=== PATIENT | female | born 1945 | race Caucasian/White ===

== ENCOUNTER 2020-01-02 12:57 | Outpatient (CLI) | payer MEDICARE, OTHER, SELFPAY ==
--- NOTE | 2020-01-02 13:08 | MM_ITS ---
WS: [id number] BILATERAL DIGITAL SCREENING MAMMOGRAPHY WITH CAD CLINICAL INFORMATION: SCREENING HISTORY: Screening mammogram. No current complaints. COMPARISON: TECHNIQUE: Bilateral CC and MLO views. FINDINGS: The breasts are composed of heterogeneous fibroglandular density tissue, which can limit the detectio n of small underlying mass lesions. No suspicious mass, asymmetry, calcifications, or architectural d istortion. No evidence of malignancy. A few stable intramammary lymph nodes. MM/[id number] IMPRESSION: BI-RADS: 2-Benign FOLLOW UP: 1 Year Follow-up Recommend return to annual screening mammography.
== END 2020-01-02 12:58 | disposition home or self-care (01) ==
LOC: RADSHAW 13:05
PROVIDERS: PCP Electrodiagnostic Medicine; Visit Provider Electrodiagnostic Medicine
DX: Z12.31 Encounter for screening mammogram for malignant neoplasm of breast (principal)
CPT/HCPCS: 77067

== ENCOUNTER 2020-03-17 09:51 | Outpatient (CLI) | payer MEDICARE, OTHER, SELFPAY ==
--- NOTE | 2020-03-17 10:00 | XR_ITS ---
WS: [id number] XR chest 2V* [id number] REASON FOR EXAM: PLEURISY FINDINGS: The heart and mediastinum are within normal limits for age. No active pulmonary parenchymal pleural disease is noted. Changes of degenerative spondylosis in the mid and lower thoracic spine, mild to moderate. XR/XR chest 2V* [id number] IMPRESSION: No acute chest abnormality.
== END 2020-03-17 09:52 | disposition home or self-care (01) ==
LOC: RAD 09:56
PROVIDERS: PCP Electrodiagnostic Medicine; Visit Provider Electrodiagnostic Medicine
DX: R09.1 Pleurisy (principal); R07.9 Chest pain, unspecified
CPT/HCPCS: 71046

== ENCOUNTER 2020-03-26 13:41 | Outpatient (CLI) | payer MEDICARE, OTHER, SELFPAY ==
--- NOTE | 2020-03-26 13:48 | CT_ITS ---
WS: [id number] CT CHEST WITH INTRAVENOUS CONTRAST HISTORY: LUNG NODULE, PLEURISY, CHEST PAIN TECHNIQUE: Contiguous 5 mm axial imaging performed on the thorax. Coronal and sagittal reformats are submitted. All CT scans at [facility] use at least one of these dose optimization techniq ues: automated exposure control; mA and/or kV adjustment per patient size (includes targeted exams wh ere dose is matched to clinical indication); or iterative reconstruction. CONTRAST: Omnipaque 300; 95 mL IV. DLP: 932.89 mGycm COMPARISON: 09/19/2018 Lungs and central airway: Poor inspiration resulting in mild crowding of the lung markings. 7 mm nodu le along the RIGHT fissures. Difficult to see today due to the poor inspiration. No increase in size or change since 04/05/2018. There is no pneumonia. Pleura: Normal. No pleural effusion. Heart and pericardium: Normal size heart with no pericardial effusion. Mediastinum and michelle: No mediastinum or hilar adenopathy. Vessels: Normal size aortic and pulmonary artery. No coronary artery calcifications. Chest wall and lower neck: No soft tissue masses. Upper abdomen: Mild hepatic steatosis. Prior cholecystectomy. Osseous structures: Degenerative thoracic spondylosis is most significant in the mid to lower thoraci c vertebral bodies. CT/CT chest w con* [id number] IMPRESSION: 1. Long-term stability of a RIGHT perifissural nodule. No additional follow-up necessary. 2. No pneumonia or mass. 3. Prior cholecystectomy.
[2020-03-26 14:29] LABS: Blood Urea Nitrogen 11 mg/dL (8-23)
[2020-03-26] MEDS: iohexol 300 mg/mL 100 mL Btl IV (14:36)
== END 2020-03-26 13:42 | disposition home or self-care (01) ==
LOC: RADWPI 13:48
PROVIDERS: PCP Electrodiagnostic Medicine; Visit Provider Electrodiagnostic Medicine
DX: R91.8 Other nonspecific abnormal finding of lung field (principal); R09.1 Pleurisy; R07.9 Chest pain, unspecified; Z90.49 Acquired absence of other specified parts of digestive tract
CPT/HCPCS: 71260; 82565; 84520; Q9967

== ENCOUNTER 2021-02-27 10:11 | Outpatient (CLI) | payer MEDICARE, OTHER, SELFPAY ==
--- NOTE | 2021-02-27 10:13 | MM_ITS ---
WS: [id number] Bilateral screening digital mammogram, 02/27/2021 Clinical Data: SCREENING Comparison: 01/02/2020, 02/07/2018, 02/26/2017, 12/10/2015, 10/14/2014. Findings: The breast parenchymal pattern shows heterogeneous density. No spiculated masses or clustered calcifi cations are seen. There are no secondary signs of carcinoma. MM/[id number] Impression: 1. Negative bilateral mammogram unchanged. 2. Recommend annual screening mammograms. BIRADS: 1-Negative FOLLOW UP: 1 Year Follow-up The CAD jukebox checker was used.
== END 2021-02-27 10:12 | disposition home or self-care (01) ==
LOC: RADSHAW 10:12
PROVIDERS: PCP Electrodiagnostic Medicine; Visit Provider Electrodiagnostic Medicine
DX: Z12.31 Encounter for screening mammogram for malignant neoplasm of breast (principal)
CPT/HCPCS: 77067

== ENCOUNTER 2021-03-30 14:35 | Outpatient (CLI) | payer MEDICARE, OTHER, SELFPAY ==
--- NOTE | 2021-03-30 14:43 | XR_ITS ---
WS: [id number] SCREENING DEXA SCAN [facility] CLINICAL INFORMATION: POST MENOPAUSAL STATUS COMPARISON: None. FINDINGS: The L1-L4 bone mineral density measures 1.294 g/cm2. This corresponds to a T score score of 0.9 and Z score of 1.7. Right femoral neck bone mineral density measures 0.941 g/cm2. This corresponds to a T score -0.5of an d Z score of 0.4. XR/XR DEXA axial skeleton* [id number] IMPRESSION: Normal bone mineralization. Patient's FRAX calculated 10 year probability for major osteoporotic fracture i s 10.0 % and osteoporotic hip fracture is 1.9%.
== END 2021-03-30 14:36 | disposition home or self-care (01) ==
PROVIDERS: PCP Electrodiagnostic Medicine; Visit Provider Electrodiagnostic Medicine
DX: Z78.0 Asymptomatic menopausal state (principal)
CPT/HCPCS: 77080

== ENCOUNTER 2021-04-07 10:55 | Emergency (ER) | payer MEDICARE, OTHER, SELFPAY ==
[2021-04-07 11:12] VITALS: BP 170/104; PULSE 63; RESP 18; TEMP 37.1; O2SAT 97; BMI 42.4
--- NOTE | 2021-04-07 11:33 | ED_ITS ---
HPI - Female Genitourinary General: Chief complaint: Urogenital-Female Stated complaint: BACK PAIN/R SIDE FLANK PAIN Time Seen by Provider: 04/07/21 11:26 History of Present Illness: HPI Narrative: 75-year-old female complains of right-sided flank pain that radiates down into her groin. Is worse when she tries to sit up. She denies any dysuria urgency or frequency no nausea or vomiting. Pain has been quite severe she is not noticed any other exacerbating or relieving factors other than waiting flexion at her hip and which worsens it and resting which improves it. She denies fever sweats chills no hematochezia melena hematemesis cough cramps no hematuria no history of renal lithiasis. Does not have any vaginal bleeding. She previously has had a hysterectomy and a cholecystectomy. MD elicited complaint: other (Right lower quadrant pain) Onset (ago): hour(s) Location of symptoms: RLQ Severity: moderate Quality of pain: cramping and sharp Consistency: intermittent Vaginal discharge: none Vaginal bleeding: none Exacerbating factors: movement and palpation Relieving factors: other (Rest) Associated symptoms: Reports abdominal pain and nausea Treatment prior to arrival: none Review of Systems Const: Denies: fever(s), chills, body aches, change in appetite, fatigue or malaise ENMT: Denies: throat pain, ear or mastoid pain, nasal discharge or nasal congestion Card: Denies: chest pain, edema, dyspnea on exertion or orthopnea Resp: Denies: dyspnea, productive cough or non-productive cough GI: Reports: abdominal pain and nausea : Denies: flank pain, difficulty voiding, dysuria, urinary frequency or urinary urgency Skin/Breast: Denies: rash or pruritus PFSH ED PFSH: Social History Smoking and tobacco status: never smoked Physical Exam Const: COMMON NORMALS: no acute distress ORIENTATION/CONSCIOUSNESS: Yes awake, Yes oriented to person, Yes oriented to place and Yes oriented to time HENMT: COMMON NORMALS: normocephalic, atraumatic and hearing grossly normal bilaterally HEAD & SCALP: normocephalic and atraumatic Neck/C-Spine: COMMON NORMALS: no JVD Resp: COMMON NORMALS: normal respiratory effort, No retractions, No use of accessory muscles and clear to auscultation bilaterally AUSCULTATION: clear to auscultation bilaterally Cardio: COMMON NORMALS: no JVD, regular rate, regular rhythm and No murmurs present (Cardio) RATE: regular rate RHYTHM: regular rhythm GI: PALPATION: Yes Tenderness to palpation present (GI) Details: RLQ and No Guarding due to palpation present (GI) Extremity: COMMON NORMALS: normal to inspection, capillary refill normal, no clubbing, cyanosis or edema, no calf tenderness and no pedal edema Neuro: SENSORIUM/ORIENTATION: Yes oriented to person, Yes oriented to place and Yes oriented to time Skin: COMMON NORMALS: no rashes or lesions noted GENERAL SKIN EXAM: no rashes or lesions noted Course Vital Signs: Vital signs: Vital Signs Temperature 98.7 F 04/07/21 11:12 Pulse Rate 70 04/07/21 14:58 Respiratory Rate 16 04/07/21 14:58 Blood Pressure 154/84 04/07/21 14:58 Pulse Oximetry 98 04/07/21 14:58 MDM - Female MDM Narrative: Medical decision making narrative: Pain reproducible with flexion across the abdomen by palpation. No peritoneal signs labs and imaging unremarkable recheck patient diclofenac can use ice or heat to that area of the muscle wall as needed return if has further problems. Lab Data: Labs: Lab Results 04/07/21 04/07/21 04/07/21 11:57 11:57 11:57 WBC 7.1 10^3/uL 10^3/ uL (4.0-10.0) RBC 5.72 10^6/uL H 10 ^6/uL (4.1-5.3) Hgb 15.6 g/dL H g/dL (11.5-15.3) Hct 49.5 % H % (37.0-47.0) MCV 86.5 fl fl (81-99) MCH 27.3 pg L pg (28.0-34.0) MCHC 31.5 g/dL g/dL (30.0-36.0) RDW 13.8 % % (12.1-15.1) Plt Count 291 10^3/cmm 10^3 /cmm (130-400) MPV 9.7 fL fL (7.4-10.4) Neut % (Auto) 52.7 % % Lymph % (Auto) 38.9 % % [place] % (Auto) 6.3 % % Eos % (Auto) 1.4 % % Baso % (Auto) 0.6 % % Neut # (Auto) 3.74 10^3/uL 10^3 /uL (1.8-7.7) Lymph # (Auto) 2.8 10^3/uL 10^3/ uL (0.8-4.8) [place] # (Auto) 0.5 10^3/uL 10^3/ uL (0.2-0.9) Eos # (Auto) 0.1 10^3/uL 10^3/ uL (0.0-0.8) Baso # (Auto) 0.0 10^3/uL 10^3/ uL (0.0-0.1) Nucleated RBC % (a uto) 0 % % Nucleated RBCs # 0.0 /100WBC /100W BC Sodium 142 mmol/L mmol/L (136-145) Potassium 4.0 mmol/L mmol/L (3.5-5.1) Chloride 105 mmol/L mmol/L (98-107) Carbon Dioxide 24 mmol/L mmol/L (22-29) Anion Gap 17.0 (5-19) BUN 12 mg/dL mg/dL (8-23) Creatinine 0.6 mg/dL mg/dL (0.5-0.9) GFR Calculation Not Reportable Glucose 106 mg/dL mg/dL (65-115) Calculated Osmolal ity 294 mOsm/kg mOsm/ kg (285-295) Calcium 9.1 mg/dL mg/dL (8.5-10.5) Total Bilirubin 0.4 mg/dL mg/dL (0.15-1.2) AST 22 U/L U/L (0-32) ALT 15 U/L U/L (0-33) Alkaline Phosphata se 88 IU/L IU/L (35-105) Total Protein 8.1 g/dL g/dL (6.6-8.7) Albumin 4.4 g/dL g/dL (3.5-5.2) Globulin 3.7 g/dL g/dL (1.3-4.6) Lipase 22 U/L U/L (13-60) Urine Color Yellow (Yellow) Urine Appearance Hazy A (CLEAR) Urine pH 5 (5-7) Ur Specific Gravit y 1.020 (1.005-1.030) Urine Protein Neg (Negative) Urine Glucose (UA) Norm (Normal) Urine Ketones Negative (Negative) Urine Blood Neg (Negative) Urine Nitrate Negative (Negative) Urine Bilirubin Neg (Negative) Urine Urobilinogen Norm mg/dL mg/dL (Negative) Ur Leukocyte Christina ase 1+ H (Negative) Urine RBC 0-4 /hpf H /hpf (0-2) Urine WBC 5-10 /hpf H /hpf (0-5) Ur Squamous Epith Cells 5-10 /hpf H /hpf (0-5) Ur Transition Epit h Cell 5-10 /hpf /hpf Amorphous Sediment Not Reportable Urine Bacteria 1+ /hpf H /hpf (NONE) Urine Mucus 2+ /hpf /hpf Discharge Plan Discharge Patient Disposition: Home Clinical Impression: Abdominal wall pain in right lower quadrant Condition: Stable Prescriptions: New diclofenac sodium 75 mg tablet,delayed release (DR/EC) 75 mg PO Q12H PRN (Reason: pain) Qty: 20 RF: 0 No Action Tylenol Ex Str Rapid Release 500 mg Tablet 1,000 mg PO Q4H PRN (Reason: Pain) RF: 0 Cholestyramine Light 4 gram powder in packet 1 ea PO BID PRN (Reason: GUT) RF: 0 Discharge Orders: Discharge ED (Routine); Ordered 04/07/21 Ordered By: Manuel Vilchis Referrals: Alexys Swanson DO [Primary Care Provider] - Discharge Diet: Usual diet Discharge Activity: Limit activity as instructed Patient Instructions: Opioid Safety Activity Restrictions/Additional Instructions: Limit lifting to no greater than 20 pounds. Coding Level of Care Code ED Concrete Batcher for Chg Fwd Exam Comprehensive
--- NOTE | 2021-04-07 11:33 | CT_ITS ---
WS: [id number] CT abdomen pelvis w con* [id number] REASON FOR EXAM: abd pain IV CONTRAST ADMINISTERED: 95 mL of Omnipaque 300 TOTAL EXAM DLP: 1689.[address] scans at [facility] use at least one of these dose optimization techniques: automat ed exposure control; mA and/or kV adjustment per patient size (includes targeted exams where dose is matched to clinical indication); or iterative reconstruction. FINDINGS: ABDOMEN: Liver, spleen, and pancreas are unremarkable. Gallbladder has been surgically removed The adrenals are unremarkable. No calculus, mass, or hydronephrosis of the right kidney. 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 No calculus or mass. No abdominal mass or adenopathy. No focal fluid collection or free fluid. No bowel abnormality. Normal appendix. PELVIS: Diverticular disease of the rectosigmoid colon without evidence of diverticulitis. No free fluid or focal fluid collection No mass or adenopathy. No bladder abnormality. LUMBAR SPINE, BONY PELVIS: Degenerative spondylosis in the lower thoracic spine and upper lumbar spine with narrowing of the dis c spaces and anterior osteophytic spurring. No focal vertebral body abnormality. Bony pelvis is intact without focal abnormality. CT/CT abdomen pelvis w con* [id number] IMPRESSION: No acute abdominal or pelvic abnormality.
[2021-04-07 12:06] LABS: Basophils % 0.6 %; Eosinophils # 0.1 10^3/uL (0.0-0.8); Eosinophils % 1.4 %; Hematocrit 49.5 % (37.0-47.0); Hemoglobin 15.6 g/dL (11.5-15.3); Lymphocytes # 2.8 10^3/uL (0.8-4.8); Lymphocytes % 38.9 %; Mean Corpuscular HGB Conc 31.5 g/dL (30.0-36.0); Mean Corpuscular Hemoglobin 27.3 pg (28.0-34.0); Mean Corpuscular Volume 86.5 fl (81-99); Mean Platelet Volume 9.7 fL (7.4-10.4); Monocytes # 0.5 10^3/uL (0.2-0.9); Monocytes % 6.3 %; Neutrophils # 3.74 10^3/uL (1.8-7.7); Neutrophils % 52.7 %; Nucleated Red Blood Cells % 0 %; Platelet Count 291 10^3/cmm (130-400); Red Blood Count 5.72 10^6/uL (4.1-5.3); Red Cell Distribution Width 13.8 % (12.1-15.1); White Blood Count 7.1 10^3/uL (4.0-10.0)
[2021-04-07 12:26] LABS: Bilirubin Urine Neg (Negative); Blood Urine Neg (Negative); Glucose Urine UA Norm (Normal); Ketones Urine Negative (Negative); Nitrate Urine Negative (Negative); Protein Urine Neg (Negative); Urine Appearance Hazy (CLEAR); Urine Color Yellow (Yellow); Urobilinogen Urine Norm (Negative); pH Urine 5 (5-7)
[2021-04-07 12:27] LABS: Add Urine Culture? Yes; Add Urine Microscopic? YES; Bacteria Urine 1+ /hpf; Leukocyte Esterase Urine 1+ (Negative); Mucus Urine 2+ /hpf; RBC Urine 0-4 /hpf (0-2)
[2021-04-07 12:31] LABS: Alanine Aminotransferase 15 U/L (0-33); Albumin Level 4.4 g/dL (3.5-5.2); Alkaline Phosphatase 88 IU/L (35-105); Aspartate Amino Transferase 22 U/L (0-32); Blood Urea Nitrogen 12 mg/dL (8-23); Calcium 9.1 mg/dL (8.5-10.5); Carbon Dioxide 24 mmol/L (22-29); Chloride 105 mmol/L (98-107); Globulin 3.7 g/dL (1.3-4.6); Glucose 106 mg/dL (65-115); Lipase 22 U/L (13-60); Osmolality Calculated 294 mOsm/kg (285-295); Sodium 142 mmol/L (136-145); Total Bilirubin 0.4 mg/dL (0.15-1.2); Total Protein 8.1 g/dL (6.6-8.7)
[2021-04-07 12:38] VITALS: BP 174/96; PULSE 63; RESP 16; O2SAT 98
[2021-04-07] MEDS: iohexol 300 mg/mL 100 mL Btl IV (13:20)
[2021-04-07 13:56] VITALS: BP 150/85; PULSE 68; RESP 18; O2SAT 97
[2021-04-07 14:58] VITALS: BP 154/84; PULSE 70; RESP 16; O2SAT 98
== END 2021-04-07 14:59 | disposition home or self-care (01) ==
PROVIDERS: Emergency Medicine; Emergency Provider Family Medicine; PCP Electrodiagnostic Medicine
DX: R10.31 Right lower quadrant pain (principal)
CPT/HCPCS: 36415; 74177; 80053; 81000; 81001; 83690; 85025; 87040; 87086; 99283; Q9967

== ENCOUNTER 2021-04-22 15:02 | Emergency (ER) | payer MEDICARE, OTHER, SELFPAY ==
[2021-04-22 15:12] VITALS: BP 155/81; PULSE 67; RESP 16; TEMP 36.6; O2SAT 97
--- NOTE | 2021-04-22 15:29 | W.ED.ABDPA2 ---
HPI - Abdominal Pain General: Chief Complaint: Abdominal Pain Stated Complaint: ABD PAIN Time Seen by Provider: 04/22/21 15:11 Source: patient Mode of arrival: ambulatory Limitations: no limitations History of Present Illness: HPI narrative: 75-year-old female returning to the ER with complaints of continued left lower flank/hip pain described as sharp, stabbing, intermittent, worse with movement, better with staying still. She was seen here about 1 week ago and had a normal CT at that time, treated for musculoskeletal sprain. She went to her PCP several days later, was started on antibiotics for suspected diverticulitis, but is still having the pains. No dysuria. No history of kidney stones. No fever or diarrhea. Occasionally she is nauseous because of the pain. MD elicited complaint: flank pain Onset (ago): week(s) Pain Consistency: intermittent and now resolved Location: R flank and Pelvis Severity: severe Quality: stabbing and sharp Exacerbating factors: movement Relieving factors: rest Associated Symptoms: Reports nausea; Denies chills, fever(s) and vomiting Treatments prior to arrival: NSAIDs Review of Systems General: Reports: 10 or more systems reviewed and unremarkable except in HPI and below Const: Denies: fever(s), chills, body aches, change in appetite or change in weight Card: Denies: chest pain, palpitations or irregular heart rhythm Resp: Denies: dyspnea or productive cough GI: Reports: nausea; Denies: abdominal pain or vomiting : Reports: flank pain; Denies: difficulty voiding, urinary urgency or urinary hesitancy Musc: Denies: muscle cramps or muscle weakness Skin/Breast: Denies: rash, pruritus or erythema Neuro: Denies: headache(s), numbness in extremities or weakness in extremities Nicolás/Lymph: Denies: easy bruising or easy bleeding PFSH ED PFSH: Family History Sister Hyperlipidemia Stroke Brother Stroke Colon cancer x2 onset in their 60's Denies family history of Ovarian cancer Diabetes Clotting disorder Heart disease Breast cancer Anesthesia complication Bleeding disorder Hypertension Uterine cancer Thyroid condition Social History Smoking and tobacco status: never smoked Physical Exam Const: COMMON NORMALS: no acute distress and patient oriented x3 GENERAL APPEARANCE: cooperative and comfortable NUTRITIONAL APPEARANCE: obese morbidly obese HENMT: COMMON NORMALS: normocephalic and atraumatic HEAD & SCALP: normocephalic and atraumatic FACE & SINUS: normal facial exam, sinuses nontender and face symmetric Eye: COMMON NORMALS: Equal, round and reactive pupils present, EOMs intact bilaterally, conjunctivae normal and no scleral icterus CONJUNCTIVA: Yes conjunctivae normal PUPIL: Yes Equal, round and reactive pupils present Resp: COMMON NORMALS: normal respiratory effort, No retractions and No use of accessory muscles EFFORT & INSPECTION: Yes able to speak in complete sentences GI: COMMON NORMALS: Normal to inspection, nondistended, normoactive bowel sounds present, Soft to palpation and non-tender INSPECTION: Yes central obesity PALPATION: Yes Soft to palpation : COMMON NORMALS: Yes no CVA tenderness BLADDER/KIDNEY EXAM: Yes no CVA tenderness Back/Pelvis: COMMON NORMALS: no CVA tenderness THORACIC SPINE/UPPER BACK: Yes paraspinal muscle tenderness, Yes paraspinal muscle spasm and No other soft tissue findings Extremity: COMMON NORMALS: full ROM, capillary refill normal and no clubbing, cyanosis or edema Neuro: COMMON NORMALS: patient oriented x3 and moves all extremities Skin: COMMON NORMALS: no rashes or lesions noted, no wounds and no jaundice GENERAL SKIN EXAM: no rashes or lesions noted Course Vital Signs: Vital signs: Vital Signs Temperature 97.8 F 04/22/21 15:12 Pulse Rate 78 04/22/21 20:29 Respiratory Rate 16 04/22/21 20:29 Blood Pressure 120/60 04/22/21 20:29 Pulse Oximetry 98 04/22/21 20:29 MDM - Abdominal Pain MDM Narrative: Medical decision making narrative: 75-year-old female with persistent left lower flank /side pain for 2 weeks. Repeat lab work is unremarkable. No signs of acute UTI Noncontrast CT does not show any ureteral stones. There are some calcified densities in the adipose tissue around the area that she has pain; unsure if these are in any way related to her pain. She does have severe degenerative disc disease of the lower thoracic and upper lumbar vertebra: Possibly pain could be due to a radiculopathy-we will give a dose of Decadron 8 mg IV x1, continue NSAIDs, follow-up closely with PCP in the next 3 to 5 days for recheck. Differential Diagnosis: Differential diagnosis abdominal pain: Likely abdominal pain, calculus of kidney, endometriosis and small bowel obstruction Medical Records: Attestation: I reviewed the patient's medical records. Lab Data: Attestation: I reviewed the patient's lab results. Labs: Lab Results 04/22/21 04/22/21 04/22/21 14:45 14:45 16:13 WBC 7.4 10^3/uL 10^3/ uL (4.0-10.0) RBC 5.52 10^6/uL H 10 ^6/uL (4.1-5.3) Hgb 15.0 g/dL g/dL (11.5-15.3) Hct 47.5 % H % (37.0-47.0) MCV 86.1 fl fl (81-99) MCH 27.2 pg L pg (28.0-34.0) MCHC 31.6 g/dL g/dL (30.0-36.0) RDW 14.2 % % (12.1-15.1) Plt Count 275 10^3/cmm 10^3 /cmm (130-400) MPV 10.5 fL H fL (7.4-10.4) Neut % (Auto) 62.3 % % Lymph % (Auto) 29.0 % % [place] % (Auto) 6.4 % % Eos % (Auto) 1.2 % % Baso % (Auto) 0.8 % % Neut # (Auto) 4.58 10^3/uL 10^3 /uL (1.8-7.7) Lymph # (Auto) 2.1 10^3/uL 10^3/ uL (0.8-4.8) [place] # (Auto) 0.5 10^3/uL 10^3/ uL (0.2-0.9) Eos # (Auto) 0.1 10^3/uL 10^3/ uL (0.0-0.8) Baso # (Auto) 0.1 10^3/uL 10^3/ uL (0.0-0.1) Nucleated RBC % (a uto) 0 % % Nucleated RBCs # 0.0 /100WBC /100W BC Sodium 138 mmol/L mmol/L (136-145) Potassium 4.8 mmol/L mmol/L (3.5-5.1) Chloride 102 mmol/L mmol/L (98-107) Carbon Dioxide 24 mmol/L mmol/L (22-29) Anion Gap 16.8 (5-19) BUN 20 mg/dL mg/dL (8-23) Creatinine 0.8 mg/dL mg/dL (0.5-0.9) GFR Calculation Not Reportable Glucose 92 mg/dL mg/dL (65-115) Calculated Osmolal ity 288 mOsm/kg mOsm/ kg (285-295) Calcium 9.1 mg/dL mg/dL (8.5-10.5) Total Bilirubin 0.3 mg/dL mg/dL (0.15-1.2) AST 32 U/L U/L (0-32) ALT 30 U/L U/L (0-33) Alkaline Phosphata se 78 IU/L IU/L (35-105) C-Reactive Protein 2.4 mg/L mg/L (0.0-4.9) Total Protein 8.0 g/dL g/dL (6.6-8.7) Albumin 4.4 g/dL g/dL (3.5-5.2) Globulin 3.6 g/dL g/dL (1.3-4.6) Urine Color Yellow (Yellow) Urine Appearance Clear (CLEAR) Urine pH 5 (5-7) Ur Specific Gravit y 1.010 (1.005-1.030) Urine Protein Neg (Negative) Urine Glucose (UA) Norm (Normal) Urine Ketones Negative (Negative) Urine Blood Neg (Negative) Urine Nitrate Negative (Negative) Urine Bilirubin Neg (Negative) Urine Urobilinogen Norm mg/dL mg/dL (Negative) Ur Leukocyte Christina ase Trace H (Negative) Urine RBC None /hpf /hpf (0-2) Urine WBC 5-10 /hpf H /hpf (0-5) Ur Squamous Epith Cells 0-4 /hpf H /hpf (0-5) Amorphous Sediment Not Reportable Urine Bacteria Trace /hpf /hpf (NONE) Discharge Plan Discharge Patient Disposition: Home Clinical Impression: Radicular pain, Dorsalgia of thoracolumbar region Condition: Stable Prescriptions: New meloxicam 15 mg tablet 15 mg PO DAILY PRN (Reason: pain) Qty: 10 RF: 0 No Action metronidazole [Flagyl] 500 mg tablet 500 mg PO BID 14 Days Qty: 28 RF: 0 Tylenol Ex Str Rapid Release 500 mg Tablet 1,000 mg PO Q4H PRN (Reason: Pain) RF: 0 Cholestyramine Light 4 gram powder in packet 1 ea PO BID PRN (Reason: GUT) RF: 0 diclofenac sodium 75 mg tablet,delayed release (DR/EC) 75 mg PO Q12H PRN (Reason: pain) Qty: 20 RF: 0 Discharge Orders: Discharge ED (Routine); Ordered 04/22/21 Ordered By: Kenyatta Carvajal Referrals: Alexys Swanson DO [Primary Care Provider] - Discharge Diet: Advance as tolerated Discharge Activity: Resume usual activity Activity Restrictions/Additional Instructions: Call to schedule follow-up appoint with your primary care doctor in the next 3 days for recheck. Rest, apply heat, Return immediately to the ER if you develop worsening pain, fever, difficulty walking, or any other worsening symptoms. Coding Level of Care Code ED Network Control Operator for Dahlia Fwd Exam Comprehensive
[2021-04-22 15:43] LABS: Basophils # 0.1 10^3/uL (0.0-0.1); Basophils % 0.8 %; Eosinophils # 0.1 10^3/uL (0.0-0.8); Eosinophils % 1.2 %; Hematocrit 47.5 % (37.0-47.0); Lymphocytes # 2.1 10^3/uL (0.8-4.8); Mean Corpuscular HGB Conc 31.6 g/dL (30.0-36.0); Mean Corpuscular Hemoglobin 27.2 pg (28.0-34.0); Mean Corpuscular Volume 86.1 fl (81-99); Mean Platelet Volume 10.5 fL (7.4-10.4); Monocytes # 0.5 10^3/uL (0.2-0.9); Monocytes % 6.4 %; Neutrophils # 4.58 10^3/uL (1.8-7.7); Neutrophils % 62.3 %; Nucleated Red Blood Cells % 0 %; Platelet Count 275 10^3/cmm (130-400); Red Blood Count 5.52 10^6/uL (4.1-5.3); Red Cell Distribution Width 14.2 % (12.1-15.1); White Blood Count 7.4 10^3/uL (4.0-10.0)
[2021-04-22 16:02] LABS: Alanine Aminotransferase 30 U/L (0-33); Albumin Level 4.4 g/dL (3.5-5.2); Alkaline Phosphatase 78 IU/L (35-105); Anion Gap 16.8 (5-19); Aspartate Amino Transferase 32 U/L (0-32); Blood Urea Nitrogen 20 mg/dL (8-23); C Reactive Protein 2.4 mg/L (0.0-4.9); Calcium 9.1 mg/dL (8.5-10.5); Carbon Dioxide 24 mmol/L (22-29); Chloride 102 mmol/L (98-107); Globulin 3.6 g/dL (1.3-4.6); Glucose 92 mg/dL (65-115); Osmolality Calculated 288 mOsm/kg (285-295); Potassium 4.8 mmol/L (3.5-5.1); Sodium 138 mmol/L (136-145); Total Bilirubin 0.3 mg/dL (0.15-1.2)
[2021-04-22 17:03] LABS: Urine Color Yellow (Yellow)
[2021-04-22 17:04] LABS: Add Urine Microscopic? YES; Bilirubin Urine Neg (Negative); Blood Urine Neg (Negative); Glucose Urine UA Norm (Normal); Ketones Urine Negative (Negative); Leukocyte Esterase Urine Trace (Negative); Nitrate Urine Negative (Negative); Protein Urine Neg (Negative); Urine Appearance Clear (CLEAR); Urobilinogen Urine Norm (Negative); pH Urine 5 (5-7)
[2021-04-22 17:05] LABS: Add Urine Culture? No; Bacteria Urine TRACE /hpf; Squamous Epithelial Cell Urine 0-4 /hpf (0-5)
--- NOTE | 2021-04-22 17:34 | CTR_ITS ---
PROCEDURE INFORMATION: Exam: CT Abdomen And Pelvis Without Contrast Exam date and time: 04/22/2021 5:34 PM Age: 75 years old Clinical indication: Abdominal pain; Localized; Right lower quadrant (rlq); Prior surgery; Surgery type: Gb, hyst; Additional info: Flank pain, nausea, vomiting TECHNIQUE: Imaging protocol: Computed tomography of the abdomen and pelvis without contrast. Radiation optimization: All CT scans at this facility use at least one of these dose optimization techniques: automated exposure control; mA and/or kV adjustment per patient size (includes targeted exams where dose is matched to clinical indication); or iterative reconstruction. COMPARISON: CT abdomen pelvis w con* [id number] 04/07/2021 1:13 PM RADIATION DOSE METRICS: Total DLP (mGy-cm): 1665.47 FINDINGS: Lungs: The lung bases appear unremarkable. Liver: The liver is unremarkable in appearance. Gallbladder and bile ducts: The gallbladder is surgically absent. No biliary dilatation. Pancreas: The pancreas is normal in appearance. No pancreatic duct dilatation. Spleen: The spleen is normal in size and appearance. Adrenal glands: Unremarkable. No mass. Kidneys and ureters: 2.8 cm simple appearing left parapelvic renal cyst. No solid renal masses. No calculus. No hydronephrosis. The ureters appear normal. Stomach and bowel: No acute gastric abnormality demonstrated. The small bowel is unremarkable as demonstrated. Diverticulosis of the colon. No evidence of acute diverticulitis. Appendix: The appendix is normal in appearance. No evidence of appendicitis. Intraperitoneal space: No pneumoperitoneum. No significant fluid collection. Vasculature: Mild atherosclerosis of the aorta. No aortic aneurysm. Lymph nodes: No pathologically enlarged lymph nodes are demonstrated. Urinary bladder: Unremarkable as visualized. Reproductive: The uterus is not visualized, consistent with hysterectomy. The uterus is not visualized, consistent with hysterectomy. Bilateral ovaries appear unremarkable. Bones/joints: Degenerative spine changes are noted. No fracture or other acute osseous abnormality. Degenerative spine changes are noted. Soft tissues: The soft tissues appear unremarkable. CT/CT kidney stone [id number] IMPRESSION: 1. Diverticulosis of the colon. No evidence of acute diverticulitis. 2. No acute bowel abnormality identified. 3. No acute abnormality demonstrated of the solid organs. COMMENTS: Consistent with the [employer]'s Incidental Findings Committee white paper (J Am Jillian Radiol 2018): Any incidental renal lesion less than 1 cm or classified as too small to characterize, or any incidental cystic renal lesion characterized as simple-appearing, is likely benign. No follow-up imaging is recommended for these lesions per consensus recommendations based on imaging criteria.
[2021-04-22] MEDS: dexamethasone 10 mg/mL INJ 8 MG IVP (20:01)
[2021-04-22 20:29] VITALS: BP 120/60; PULSE 78; RESP 16; O2SAT 98
== END 2021-04-22 20:30 | disposition home or self-care (01) ==
PROVIDERS: Emergency Provider Family Medicine; PCP Electrodiagnostic Medicine
DX: M54.10 Radiculopathy, site unspecified (principal); M54.50 Low back pain, unspecified
CPT/HCPCS: 74176; 80053; 81001; 85025; 86140; 96374; 96375; 99283; J1100

== ENCOUNTER 2021-08-14 14:36 | Outpatient (CLI) | payer MEDICARE, OTHER, SELFPAY ==
--- NOTE | 2021-08-14 14:39 | US_ITS ---
WS: [id number] THYROID ULTRASOUND HISTORY: THYROID NODULE COMPARISON: None available. Right lobe: 1.5 cm x 1.9 cm x 5.4 cm (w x ap x l). Volume: 8.2 cm3. Minimally prominent thyroid. Heterogeneous gland with coarse echotexture. No discrete well-formed nod ule and no increased vascularity. Left lobe: 1.2 cm x 1.6 cm x 4.3 cm (w x ap x l). Volume: 4.3 cm3. Normal size gland and coarse echotexture of heterogeneity. No discrete well-formed nodule. No increas ed vascularity. Isthmus: 0.2 cm. US/US thyroid [id number] IMPRESSION: 1. Heterogeneous thyroid gland with no discrete nodules. 2. No hypervascularity.
== END 2021-08-14 14:37 | disposition home or self-care (01) ==
LOC: RAD 14:37
PROVIDERS: PCP Electrodiagnostic Medicine; Visit Provider Electrodiagnostic Medicine
DX: E01.0 Iodine-deficiency related diffuse (endemic) goiter (principal)
CPT/HCPCS: 76536

== ENCOUNTER 2022-04-12 13:55 | Outpatient (CLI) | payer MEDICARE, OTHER, SELFPAY ==
--- NOTE | 2022-04-12 14:01 | MR_ITS ---
WS: [id number] MRI LUMBAR SPINE NONCONTRAST TECHNIQUE: Sagittal T1, T2 and STIR imaging. Axial T1 and T2 imaging. CLINICAL INFORMATION: LOW BACK PAIN COMPARISON: None. FINDINGS: Mild lumbar curve. No acute compression. Mild disc bulging lower thoracic spine. Anterior hypertrophi c changes. No high-grade central canal stenosis. Partially visualized bilateral renal cysts. Extraren al pelvis LEFT kidney. Normal caliber infrarenal abdominal aorta. L1-L2: Normal. L2-L3: Mild disc bulging with mild central canal stenosis. Narrowing subarticular recess bilaterally LEFT greater than RIGHT. Mild facet arthropathy. Mild LEFT greater than RIGHT foraminal narrowing. L3-L4: Small LEFT foraminal protrusion slightly impinges the exiting LEFT L3 nerve root with moderate LEFT foraminal narrowing. Mild RIGHT foraminal narrowing. Moderate facet arthropathy. Mild central c anal stenosis and slight impingement on the LEFT subarticular recess. L4-L5: Mild annular bulging with mild central canal stenosis. Impingement on traversing L5 nerve root s bilaterally. Moderate facet arthropathy. Moderate RIGHT and mild LEFT foraminal narrowing. Moderate facet arthropathy. Impingement traversing L5 nerve roots bilaterally. L5-S1: Mild annular bulging with slight effacement of ventral thecal sac. Moderate facet arthropathy. RIGHT eccentric disc bulging with mild RIGHT and no significant LEFT foraminal narrowing. Central disc protrusion C4-C5 with indentation on the thoracic cord and mild to moderate central kena l stenosis. This is seen on the service attendant imaging. This can be further evaluated with thoracic spine MRI. Visualized pelvic bony structures: Normal. Paravertebral soft tissues: Normal. MR/MR lumbar spine wo con* [id number] IMPRESSION: 1. Mild lumbar curve. No acute compression. No high-grade central canal stenos is. 2. Mild central canal stenosis L2-L3 and L4-L5 worse L4-L5 with impingement tr aversing L5 nerve roots bilaterally. 3. Moderate RIGHT L4-L5 foraminal narrowing impinges the exiting RIGHT L4 nerv e root. 4. Small LEFT foraminal protrusion L3-L4 with moderate LEFT foraminal narrowin g. 5. Mild bilateral L2-L3 foraminal narrowing with small foraminal protrusions. 6. Mild RIGHT L5-S1 foraminal narrowing due to RIGHT eccentric disc osteophyte complex. 7. Moderate facet arthropathy L3-L5. 8. Small disc protrusions in the lower thoracic spine at T10-T11 and T11-T12. 9. Central disc herniation T4-T5 with indentation on the thoracic cord and mil d to moderate central canal stenosis. This is seen on the service attendant imaging. This c an be further evaluated with thoracic spine MRI.
== END 2022-04-12 13:56 | disposition home or self-care (01) ==
LOC: RAD 13:56
PROVIDERS: PCP Electrodiagnostic Medicine; Visit Provider Electrodiagnostic Medicine
DX: M54.50 Low back pain, unspecified (principal); M48.061 Spinal stenosis, lumbar region without neurogenic claudication; M47.816 Spondylosis without myelopathy or radiculopathy, lumbar region; M51.24 Other intervertebral disc displacement, thoracic region
CPT/HCPCS: 72148

== ENCOUNTER 2022-09-13 12:43 | Outpatient (CLI) | payer MEDICARE, OTHER, SELFPAY ==
--- NOTE | 2022-09-13 12:56 | MR_ITS ---
WS: [id number] MRI THORACIC SPINE noncontrast. HISTORY: STENOSIS OF SPINAL CANAL D/T INTERVERTEBRAL DISK COMPARISON: MRI lumbar spine 04/12/2022 TECHNIQUE: Multiplanar sequences are performed in sagittal and axial planes. Disc spaces are mildly to moderately narrowed throughout the thoracic spine. No acute fractures. No m arrow edema or retropulsion. T1-2: Mild disc bulging and facet arthritis. T2-3: Mild bilateral facet arthritis. T3-4: Small central disc protrusion and bilateral facet arthritis and mild foraminal narrowing. T4-5: Moderate central disc protrusion extends just cephalad from the disc space. Disc protrusion ex tends over a length of 8 mm and there is contact on the ventral thoracic cord and displacement. Mild bilateral facet arthritis. Mild central stenosis. T5-6: Mild disc bulging. T6-7: Normal. T7-8: Very shallow RIGHT paracentral disc protrusion and mild facet arthritis. Mild bilateral forami nal stenosis. T8-9: Mild central disc protrusion and bilateral facet arthritis. Mild foraminal stenosis. T9-10: Osteophytic ridging and bilateral moderate facet arthritis. Mild foraminal stenosis. T10-11: Diffuse annular disc bulge with a central disc protrusion. Moderate facet arthritis and fora elana stenosis. T11-12: Diffuse annular disc bulge with a shallow central disc protrusion. Bilateral facet arthritis and foraminal stenosis. MR/MR thoracic spin wo con* [id number] IMPRESSION: 1. Moderate central disc protrusion at T4-5 contacts and deforms the ventral t horacic cord resulting in mild central stenosis. 2. Multilevel mild to moderate facet joint arthritis and foraminal stenoses as above. More significant stenosis at T10-11. 3. Small central disc protrusion at T8-9, T10-11 and T11-[address] 4. No signal abnormality within the cord. 5. No acute thoracic spine fractures.
== END 2022-09-13 12:44 | disposition home or self-care (01) ==
PROVIDERS: PCP Electrodiagnostic Medicine; Visit Provider Electrodiagnostic Medicine
DX: M99.59 Intervertebral disc stenosis of neural canal of abdomen and other regions (principal); M51.24 Other intervertebral disc displacement, thoracic region; M48.04 Spinal stenosis, thoracic region
CPT/HCPCS: 72146

== ENCOUNTER 2023-01-16 23:32 | Inpatient (IN) | payer MEDICARE, OTHER, SELFPAY ==
[2023-01-16 23:36] VITALS: BP 154/102; PULSE 73; RESP 17; TEMP 36.4; O2SAT 97; BMI 40.4
[2023-01-17] VITALS (11 sets, daily range): BP systolic 120–162; BP diastolic 73–87; PULSE 63–101; RESP 16–18; TEMP 36.4–37.1; O2SAT 90–98
--- NOTE | 2023-01-17 | MR_ITS ---
WS: [id number] MRA HEAD TECHNIQUE: Axial 3-D TOF images obtained with axial images and axial, sagittal, and coronal 2-D refor matted images. CLINICAL INFORMATION: STROKE COMPARISON: None. FINDINGS: Exam is limited due to patient motion. Dominant distal LEFT vertebral artery. Basilar artery is patent. Normal vascularity to the BED PLACEMENT COORDINATOR territ ory bilaterally. Both ICAs appear patent at the skull base. Normal vascularity to the SUKI and MCA territories bilatera lly. No evidence of proximal flow-limiting stenosis. Mild intracranial atheromatous disease. IMPRESSION: Exam significantly limited by patient motion. 1. No flow-limiting proximal intracranial stenosis considering limitations. 2. Mild intracranial atheromatous disease.
--- NOTE | 2023-01-17 00:15 | CTR_ITS ---
PROCEDURE INFORMATION: Exam: CT Head Without Contrast Exam date and time: 01/17/2023 1:08 AM Age: 77 years old Clinical indication: Patient HX: Dizziness with general weakness; Additional info: Weakness, AMS TECHNIQUE: Imaging protocol: Computed tomography of the head without contrast. Radiation optimization: All CT scans at this facility use at least one of these dose optimization techniques: automated exposure control; mA and/or kV adjustment per patient size (includes targeted exams where dose is matched to clinical indication); or iterative reconstruction. REPORTING DATA: Count of CT and Cardiac NM exams in prior 12 months: This patient has received 0 known CTs and 0 known cardiac nuclear medicine studies in the 12 months prior to the current study. COMPARISON: [place] thyroid [id number] 08/14/2021 2:51 PM RADIATION DOSE METRICS: Total DLP (mGy-cm): 1375.01 FINDINGS: Brain: Subcortical and periventricular white matter changes consistent with small-vessel ischemic disease in the appropriate clinical setting. Small-vessel ischemic disease. Cerebral ventricles: No ventriculomegaly. Paranasal sinuses: Visualized sinuses are unremarkable. No fluid levels. Mastoid air cells: Visualized mastoid air cells are well aerated. Bones/joints: Unremarkable. No acute fracture. Soft tissues: Unremarkable. CT/CT head wo con* [id number] IMPRESSION: 1. No acute intracranial abnormality. 2. Small-vessel ischemic disease.
--- NOTE | 2023-01-17 00:15 | XRR_ITS ---
PROCEDURE INFORMATION: Exam: XR Chest Exam date and time: 01/17/2023 12:20 AM Age: 77 years old Clinical indication: Other: General weakness; Prior surgery; Surgery date: 6+ months; Surgery type: Gb; Additional info: Weakness AMS TECHNIQUE: Imaging protocol: Radiologic exam of the chest. Views: 1 view. COMPARISON: CT chest w con* [id number] 03/26/2020 2:33 PM FINDINGS: Lungs: Unremarkable. No consolidation. Pleural spaces: Unremarkable. No pleural effusion. No pneumothorax. Heart/Mediastinum: Unremarkable. No cardiomegaly. Bones/joints: Unremarkable. XR/XR chest 1V portable [id number] IMPRESSION: No acute findings.
[2023-01-17] MEDS: sodium chloride 0.9% 1,000 ML 999 ML IV (00:42)
--- NOTE | 2023-01-17 00:55 | ECG_ITS ---
[facility] Test Date: 2023-01-17 Pat Name: Asya Myers Department: Room: Gender: Female Primary Special Educator: : 1945 Requested By: Erik Simmons Order Number: [id number] Tianna MD: Charles Laguna M.D. Measurements Intervals Alpha Rate: 81 P: 52 WA: 211 QRS: 30 QRSD: 89 T: 39 QT: 388 QTc: 451 Interpretive Statements SINUS RHYTHM WITH FIRST DEGREE AV BLOCK No previous ECG available for comparison Electronically Signed On 01-17-2023 16:16:53 CDT by Charles Laguna M.D. [email or web address] [email or web address].[email or web address]/store/OM/[id number]
[2023-01-17 00:57] LABS: Alanine Aminotransferase 9 U/L (0-33); Albumin Level 4.3 g/dL (3.5-5.2); Alkaline Phosphatase 94 U/L (35-105); Aspartate Amino Transferase 14 U/L (0-32); Blood Urea Nitrogen 17 mg/dL (8-23); C Reactive Protein 3.1 mg/L (0.0-4.9); Calcium 9.3 mg/dL (8.5-10.5); Carbon Dioxide 28 mmol/L (22-29); Chloride 100 mmol/L (98-107); Creatine Phosphokinase 55 U/L (26-192); Globulin 3.5 g/dL (1.3-4.6); Glucose 149 mg/dL (65-115); NT Pro B Type Natriuretic Pept 107 pg/mL (0-450); Osmolality Calculated 292 mOsm/kg (285-295); Sodium 139 mmol/L (136-145); Total Bilirubin 0.4 mg/dL (0.15-1.2); Total Protein 7.8 g/dL (6.6-8.7)
[2023-01-17 00:59] LABS: Basophils % 0.2 %; Eosinophils % 0.1 %; Hematocrit 45.3 % (36-47); Lymphocytes # 1.4 10^3/uL (0.8-4.8); Lymphocytes % 14.4 %; Mean Corpuscular HGB Conc 31.3 g/dL (30-55); Mean Corpuscular Hemoglobin 27.2 pg (27-33); Mean Corpuscular Volume 86.8 fl (85-98); Mean Platelet Volume 10.6 fL (7.4-10.4); Monocytes # 0.3 10^3/uL (0.2-0.9); Monocytes % 3.5 %; Neutrophils # 7.63 10^3/uL (1.8-7.7); Neutrophils % 81.5 %; Nucleated Red Blood Cells % 0 %; Platelet Count 271 10^3/cmm (157-399); Red Blood Count 5.22 10^6/uL (3.85-5.65); Red Cell Distribution Width 13.5 % (12.1-15.1); White Blood Count 9.37 10^3/uL (3.29-11.43)
[2023-01-17 01:05] LABS: Alcohol Level < 10 mg/dL (0-10)
[2023-01-17 01:10] LABS: Add Urine Microscopic? NO; Charge for UA Resulting for Rev
[2023-01-17 01:12] LABS: Bilirubin Urine Neg (Negative); Blood Urine Neg (Negative); Glucose Urine UA Norm (Normal); Ketones Urine 1+ (Negative); Leukocyte Esterase Urine Negative (Negative); Nitrate Urine Negative (Negative); Protein Urine Neg (Negative); Urine Appearance Clear (CLEAR); Urine Color Yellow (Yellow); Urobilinogen Urine Neg (Negative); pH Urine 5 (5-7)
--- NOTE | 2023-01-17 01:16 | PC.NURSE ---
RN into room to retrieve urine sample from pt. Pt is unable to sit up in bed without assistance. Pt cannot stand. Pt put on bed knutson but is still unable to urinate. RN straight catheterized pt and left pt on bedpan. Urine output about 1 L clear, yellow, no odor. informed. Pt resting in bed at this time. Will continue to monitor.
[2023-01-17] MEDS: aspirin 325 mg Tablet PO (02:55)
--- NOTE | 2023-01-17 03:03 | W.ED.WEAKNES ---
HPI - Weakness General: Chief complaint: Weakness Stated complaint: Weakness/ N/V Time Seen by Provider: 01/16/23 23:34 History of Present Illness: 77-year-old female who states that she slid off of her couch and landed in the floor after becoming dizzy when getting up sometime around 4:30 in the afternoon. She was unable to get up. Her tried to convince her to call EMS, but she did not allow him to until late tonight. She was able to move around in the floor, but could not stand to get out of the floor. She denies chest pain or shortness of breath. There is no numbness or tingling. No vision changes. No focal weakness. She says she is weak all over. She is still dizzy when trying to get up. No history of fever. Associated symptoms: Reports confusion (According to ), headache(s), nausea and vomiting (Once a day); Denies chest pain or fever(s) Review of Systems Const: Denies: fever(s) ENMT: Denies: throat pain Card: Denies: chest pain or palpitations Resp: Denies: dyspnea, productive cough or non-productive cough GI: Reports: nausea and vomiting (Once a day); Denies: abdominal pain Musc: Reports: back pain (Chronic low back) and joint pain (Chronic left knee) Neuro: Reports: headache(s), dizziness, vertigo and confusion (According to ) PFS ED PFSH: Family History Sister Hyperlipidemia Stroke Brother Stroke Colon cancer x2 onset in their 60's Denies family history of Ovarian cancer Diabetes Clotting disorder Heart disease Breast cancer Anesthesia complication Bleeding disorder Hypertension Uterine cancer Thyroid condition Social History Smoking and tobacco status: never smoked Physical Exam Const: COMMON NORMALS: alert GENERAL APPEARANCE: cooperative, ill appearing and frail appearing HENMT: COMMON NORMALS: normocephalic, atraumatic and Normal external nose present HEAD & SCALP: normocephalic and atraumatic FACE & SINUS: normal facial exam and face symmetric NOSE: Normal external nose present Eye: COMMON NORMALS: Equal, round and reactive pupils present and EOMs intact bilaterally PUPIL: Yes Equal, round and reactive pupils present Neck/C-Spine: GENERAL: Yes trachea midline Chest: CHEST: Yes Symmetrical chest wall rise Resp: COMMON NORMALS: normal respiratory effort, No retractions, No use of accessory muscles and clear to auscultation bilaterally AUSCULTATION: clear to auscultation bilaterally Cardio: COMMON NORMALS: regular rate and regular rhythm RATE: regular rate RHYTHM: regular rhythm GI: COMMON NORMALS: Normal to inspection, nondistended, normoactive bowel sounds present Extremity: COMMON NORMALS: no pedal edema Neuro: ENZO COMA SCALE: document GCS findings [place] coma scale eye opening: Spontaneous Enzo coma scale verbal response: Orientated Enzo coma scale motor response: Obey commands Enzo coma scale total score: 15 SENSORIUM/ORIENTATION: Yes alert CRANIAL NERVES: Yes CN normal except as noted COORDINATION/BALANCE: [id number] test normal SENSORY EXAM: Yes extremities (intact) MOTOR EXAM: Normal motor muscle tone present throughout and Other motor observations present (equal bilateral LE weakness) COORDINATION: [id number] test normal Psych: COMMON NORMALS: speech normal SPEECH: Yes normal speech Skin: COMMON NORMALS: no rashes or lesions noted GENERAL SKIN EXAM: no rashes or lesions noted Course Vital Signs: Vital signs: Vital Signs Temperature 97.6 F 01/16/23 23:36 Pulse Rate 78 01/17/23 02:36 Respiratory Rate 16 01/17/23 02:36 Blood Pressure 162/81 01/17/23 01:57 Pulse Oximetry 94 01/17/23 02:36 MDM - Weakness Medical Decision Making This patient could not get up to a bedside. Straight cath revealed over a liter of urine. This may be causing some weakness. Her CRP is 3. Ethyl alcohol is nondetectable. Urinalysis is negative, save some ketones. BMP, liver enzymes, and lactic acid are not remarkable. Head CT is not remarkable. Chest x-ray is negative. Cause for generalized weakness is unknown. Her neurological exam is nonfocal. She is so far out from onset of symptoms, the treatment would not be recommended. She will be observed. Physical therapy consult placed for the morning. Hospitalist will see the patient. Lab Data 01/16/23 23:14 01/16/23 23:14 Radiology Impressions Chest X-Ray 01/17/23 00:15 IMPRESSION: No acute findings. Head CT 01/17/23 00:15 IMPRESSION: 1. No acute intracranial abnormality. 2. Small-vessel ischemic disease. Laboratory Results WBC 9.37 10^3/uL (3.29-11.43) 01/16/23 23:14 Corrected WBC Cancelled 12/27/22 23:14 RBC 5.22 10^6/uL (3.85-5.65) 01/16/23 23:14 Hgb 14.20 g/dL (11.27-16.99) 01/16/23 23:14 Hct 45.3 % (36-47) 01/16/23 23:14 MCV 86.8 fl (85-98) 01/16/23 23:14 MCH 27.2 pg (27-33) 01/16/23 23:14 MCHC 31.3 g/dL (30-55) 01/16/23 23:14 RDW 13.5 % (12.1-15.1) 01/16/23 23:14 Plt Count 271 10^3/cmm (157-399) 01/16/23 23:14 MPV 10.6 fL (7.4-10.4) H 01/16/23 23:14 Gran % Cancelled 12/27/22 23:14 Neut % (Auto) 81.5 % 01/16/23 23:14 Lymph % (Auto) 14.4 % 01/16/23 23:14 Van Zandt % (Auto) 3.5 % 01/16/23 23:14 Eos % (Auto) 0.1 % 01/16/23 23:14 Baso % (Auto) 0.2 % 01/16/23 23:14 Neut # (Auto) 7.63 10^3/uL (1.8-7.7) 01/16/23 23:14 Lymph # (Auto) 1.4 10^3/uL (0.8-4.8) 01/16/23 23:14 [place]andt # (Auto) 0.3 10^3/uL (0.2-0.9) 01/16/23 23:14 Eos # (Auto) 0.0 10^3/uL (0.0-0.8) 01/16/23 23:14 Baso # (Auto) 0.0 10^3/uL (0.0-0.1) 01/16/23 23:14 Absolute Gran (auto) Cancelled 12/27/22 23:14 Nucleated RBC % (auto) 0 % 01/16/23 23:14 Nucleated RBCs # 0.0 /100WBC 01/16/23 23:14 Sodium 139 mmol/L (136-145) 01/16/23 23:14 Potassium 4.0 mmol/L (3.5-5.1) 01/16/23 23:14 Chloride 100 mmol/L (98-107) 01/16/23 23:14 Carbon Dioxide 28 mmol/L (22-29) 01/16/23 23:14 Anion Gap 15.0 (5-19) 01/16/23 23:14 BUN 17 mg/dL (8-23) 01/16/23 23:14 Creatinine 0.6 mg/dL (0.5-0.9) 01/16/23 23:14 GFR Calculation Not Reportable 01/16/23 23:14 Glucose 149 mg/dL (65-115) H 01/16/23 23:14 Calculated Osmolality 292 mOsm/kg (285-295) 01/16/23 23:14 Lactic Acid 2.0 mmol/L (0.5-2.2) 01/16/23 23:14 Calcium 9.3 mg/dL (8.5-10.5) 01/16/23 23:14 Total Bilirubin 0.4 mg/dL (0.15-1.2) 01/16/23 23:14 AST 14 U/L (0-32) 01/16/23 23:14 ALT 9 U/L (0-33) 01/16/23 23:14 Alkaline Phosphatase 94 U/L (35-105) 01/16/23 23:14 Creatine Kinase 55 U/L (26-192) 01/16/23 23:14 C-Reactive Protein 3.1 mg/L (0.0-4.9) 01/16/23 23:14 NT-Pro-B Natriuret Pep 107 pg/mL (0-450) 01/16/23 23:14 Total Protein 7.8 g/dL (6.6-8.7) 01/16/23 23:14 Albumin 4.3 g/dL (3.5-5.2) 01/16/23 23:14 Globulin 3.5 g/dL (1.3-4.6) 01/16/23 23:14 Urine Color Yellow (Yellow) 01/17/23 00:54 Urine Appearance Clear (CLEAR) 01/17/23 00:54 Urine pH 5 (5-7) 01/17/23 00:54 Ur Specific [place] 1.020 (1.005-1.030) 01/17/23 00:54 Urine Protein Neg (Negative) 01/17/23 00:54 Urine Glucose (UA) Norm (Normal) 01/17/23 00:54 Urine Ketones 1+ (Negative) H 01/17/23 00:54 Urine Blood Neg (Negative) 01/17/23 00:54 Urine Nitrate Negative (Negative) 01/17/23 00:54 Urine Bilirubin Neg (Negative) 01/17/23 00:54 Urine Urobilinogen Neg mg/dL (Negative) 01/17/23 00:54 Ur Leukocyte Esterase Negative (Negative) 01/17/23 00:54 Ethyl Alcohol < 10 mg/dL (0-10) 01/16/23 23:14 All radiology interpretation(s) finalized by discharge Discharge Plan Discharge Patient Disposition: Placed in Observation Clinical Impression: Generalized weakness Coding Level of Care Code ED Marketing Assistant for Dahlia Vallejo
--- NOTE | 2023-01-17 05:18 | PM.HP ---
Providers/Chief Complaint Admitting Physician: Elisabeth Tena MD Primary Care Provider: Alexys Swanson DO Chief Complaint: Weakness/ N/V History of Present Illness Asya Myers is a 77 year old female who presented to the emergency room today with chief complaints of weakness. Patient states that she was just sitting on her in the afternoon and then started to feel dizzy. States that she eventually fell asleep on the couch and then accidentally rolled off her bed. This happened at around 2 PM yesterday afternoon. He states that immediately afterwards she felt her legs gave way under her, states that she could not gather enough upper body strength to get back up on the couch. She delayed calling EMS as she wanted to observe her symptoms at home to see if they resolve. Eventually her history of recurrent the hospital at nighttime. At the time of my assessment patient has focal left lower extremity weakness. She is currently not able to lift it off the bed however she is bending it at the knee. She states that for the past 2 to 3 days her left knee had been bothering her being more painful than usual. She has a history of bilateral knee replacements. There was no warmth erythema or tenderness of the joint. She has had no fever. During the course of the night she also developed acute urinary retention which necessitated placement of a Bustamante catheter and drainage of about 1 L of urine immediately. She denies any past history of stroke. Denies any past history of any urinary complaints. Patient and her did not notice any facial asymmetry. Speech appears to be at baseline though she does appear to take longer than usual to respond to questions. Review of Systems General: Reports: 10 or more systems reviewed and unremarkable except in HPI and below Const: Denies: fever(s), chills or body aches Eyes: Denies: change in vision, blurry vision or photophobia ENMT: Reports: hoarseness; Denies: throat pain, enlarged tonsils, odynophagia or nasal congestion Card: Denies: chest pain, palpitations, irregular heart rhythm, edema, swelling of feet/ankles, lightheadedness, pre-syncope, dyspnea on exertion or orthopnea Resp: Denies: dyspnea, productive cough, non-productive cough, wheezing, stridor, pain on inspiration, change in phlegm color, hemoptysis or chest congestion GI: Denies: abdominal pain, nausea, vomiting, hematemesis, coffee ground emesis, dysphagia, heartburn, diarrhea, constipation, GI cramping, change in stool character, hematochezia or melena : Denies: flank pain, difficulty voiding, dysuria, urinary frequency, urinary urgency, urinary hesitancy or hematuria Musc: Denies: neck pain, back pain, extremity pain, joint swelling, joint warmth or deformity Neuro: Denies: headache(s), numbness in extremities, weakness in extremities, sensory changes, difficulty walking, frequent falls, dizziness, vertigo, behavioral changes, Slurred speech present or seizure-like activity Psych: Denies: anxiety, depression, suicidal ideation or homicidal ideation Endo: Denies: polyuria, polydipsia, tired all the time, cold intolerance or hot flashes Nicolás/Lymph: Denies: easy bruising or easy bleeding Medications/Allergies Home Medications Medication Instructions Recorded Confirmed Last Taken Type acetaminophen 500 mg tablet 500 mg PO Q4H PRN Pain 04/07/21 01/17/23 04/06/21 History cholestyramine-aspartame 4 gram 1 ea PO BID PRN GUT 04/07/21 01/17/23 01/13/23 History oral powder for susp in a packet (Cholestyramine Light) diclofenac sodium 75 mg 75 mg PO Q12H PRN pain #20 tabs 04/07/21 01/17/23 Unknown Rx tablet,delayed release meloxicam 15 mg tablet 15 mg PO DAILY PRN pain #10 tabs 04/22/21 01/17/23 01/14/23 18:00 Rx aspirin 81 mg capsule 162 mg PO DAILY PRN Pain 01/17/23 01/17/23 01/16/23 23:30 History Allergies Allergy/AdvReac Type Severity Reaction Status Date / Time ceftriaxone [From Rocephin] Allergy rash Verified 04/14/21 13:57 levofloxacin [From Levaquin] Allergy rash Verified 04/14/21 13:57 PFSH Acute PFSH: Family History Sister Hyperlipidemia Stroke Brother Stroke Colon cancer x2 onset in their 60's Denies family history of Ovarian cancer Diabetes Clotting disorder Heart disease Breast cancer Anesthesia complication Bleeding disorder Hypertension Uterine cancer Thyroid condition Social History Smoking and tobacco status: never smoked Vitals/I&O/Wt Last Vital Signs Temp 97.6 F 01/17/23 04:34 Pulse 78 01/17/23 04:34 Resp 16 01/17/23 04:34 BP 162/81 01/17/23 04:34 Pulse Ox 94 01/17/23 04:34 01/16/23 01/16/23 01/17/23 14:59 22:59 06:59 Intake Total 1000 / 1000 Balance 1000 / 1000 Weight last 48 hrs Weight 90.718 kg Physical Exam Narrative: General: No acute distress, AO x3 HEENT: PERRLA, pupils bilaterally equal and reactive, pallors not present Chest: Normal vesicular breath sounds, no added sounds, equal good air entry bilaterally CVS: S1-S2 regular, no murmurs, no tachycardia, no gallops, no rubs Abdomen: Soft, nontender, no organomegaly, bowel sounds present Neuro: LLE weakness, Urinary retention, keeps moving LUE, flexing at left elbow, says she cant seem to stop ? tic Data 01/16/23 23:14 01/16/23 23:14 A&P Assessment and plan (1) Lower extremity weakness: (2) Urinary retention: (3) Cord compression: Plan 77-year-old lady presenting with symptoms as above. She has a past medical history of L2-L5 spinal canal stenosis with impingement of L5 nerve roots bilaterally. Foraminal protrusion was noted. MRIs from March 2022 at the levels of T4-T5. Central disc herniation was also noted at L4-L5 level with indentation and thoracic cord. On exam today she has focal left lower extremity weakness and evidence of urinary retention. Patient is currently undergoing outpatient PT and follows with spine surgery out of [facility]. Overall concern currently is for cord compression from severe foraminal stenosis as an explanation for her symptoms. Will order MRI of the thoracolumbar spine this morning to evaluate her for the same. Dexamethasone 10 mg IV push to be given now. Other symptoms at this time are dizziness which patient states that she has had on and off in the past but yesterday afternoon was worse than usual. She denies any tinnitus. She does appear to have mild hearing impairment. Also has possibly a tic of the left upper extremity where she keeps bending her upper arm at the elbow. She is aware of it and is able to stop this voluntarily. Her speech is slightly slow, appears to take longer than usual to respond, however patient and family do not think this is unusual for her. CT of her head taken earlier today showed no acute intracranial abnormality and small vessel ischemic disease. Will obtain MRI of the brain additionally to evaluate for possible CVA including that involving the posterior circulation, though this is appearing to be less likely given focal weakness of the left lower extremity, no facial deficits. Spine surgery consulted Bustamante catheter placed for urinary retention. Further orders to be based on results of MRI. Attestations Medical Necessity Statement*: Greater than 2 midnight admission is anticipated for focal extremity weakness, urinary retention, concern for cord compression Coding Level of Care Code Acute Code for Chg Fwd Diagnoses Lower extremity weakness R29.898 Urinary retention R33.9 Cord compression G95.20
[2023-01-17] MEDS: dexamethasone 10 mg/mL INJ IVP (06:49)
--- NOTE | 2023-01-17 06:59 | PM.CONSULT ---
Providers/Reason For Consult Consulting Physician/Specialty*: Ortho spine Reason for Consult*: Back and left leg pain/weakness Attending Physician: Elisabeth Tena MD Primary Care Provider: Alexys Swanson DO History of Present Illness History of Present Illness Asya Myers is a 77 year old female presented to the emergency room after a fall and has noticed progressive weakness in her left lower extremity with increased low back pain. Patient reports a 6-month history of progressively worsening back and leg pain amplified by the recent fall at her residence. She states she felt dizzy next thing she remembers she was on the floor. She denied any chest pain shortness of breath. She has had progressive increase in her low back pain and leg weakness over the last 6 months. She denies any loss of bowel or bladder control or. She describes the pain is sharp stabbing pain in her low back with weakness down both lower extremities left greater than right. Rest gives her some temporary relief activities is made things much worse. She has had bilateral knee replacement surgery number of years ago. She denies any loss of bowel or bladder control. She is on an MRI scan in 2021 but her symptoms have progressively worsened since since the fall on 01/16/2023. Ranks the pain as 5 out of 10 on the pain scale. Describes diffuse weakness down her left lower extremity. Denies any hip pain. Review of Systems General: Reports: 10 or more systems reviewed and unremarkable except in HPI and below Const: Denies: fever(s), chills or body aches Eyes: Denies: change in vision, blurry vision or photophobia ENMT: Reports: hoarseness; Denies: throat pain, enlarged tonsils, odynophagia or nasal congestion Card: Denies: chest pain, palpitations, irregular heart rhythm, edema, swelling of feet/ankles, lightheadedness, pre-syncope, dyspnea on exertion or orthopnea Resp: Denies: dyspnea, productive cough, non-productive cough, wheezing, stridor, pain on inspiration, change in phlegm color, hemoptysis or chest congestion GI: Denies: abdominal pain, nausea, vomiting, hematemesis, coffee ground emesis, dysphagia, heartburn, diarrhea, constipation, GI cramping, change in stool character, hematochezia or melena : Denies: flank pain, difficulty voiding, dysuria, urinary frequency, urinary urgency, urinary hesitancy or hematuria Musc: Denies: neck pain, back pain, extremity pain, joint swelling, joint warmth or deformity Neuro: Denies: headache(s), numbness in extremities, weakness in extremities, sensory changes, difficulty walking, frequent falls, dizziness, vertigo, behavioral changes, Slurred speech present or seizure-like activity Psych: Denies: anxiety, depression, suicidal ideation or homicidal ideation Endo: Denies: polyuria, polydipsia, tired all the time, cold intolerance or hot flashes Nicolás/Lymph: Denies: easy bruising or easy bleeding Medications/Allergies Home Medications Medication Instructions Recorded Confirmed Last Taken Type acetaminophen 500 mg tablet 500 mg PO Q4H PRN Pain 04/07/21 01/17/23 04/06/21 History cholestyramine-aspartame 4 gram 1 ea PO BID PRN GUT 04/07/21 01/17/23 01/13/23 History oral powder for susp in a packet (Cholestyramine Light) diclofenac sodium 75 mg 75 mg PO Q12H PRN pain #20 tabs 04/07/21 01/17/23 Unknown Rx tablet,delayed release meloxicam 15 mg tablet 15 mg PO DAILY PRN pain #10 tabs 04/22/21 01/17/23 01/14/23 18:00 Rx aspirin 81 mg capsule 162 mg PO DAILY PRN Pain 01/17/23 01/17/23 01/16/23 23:30 History Allergies Allergy/AdvReac Type Severity Reaction Status Date / Time ceftriaxone [From Rocephin] Allergy rash Verified 04/14/21 13:57 levofloxacin [From Levaquin] Allergy rash Verified 04/14/21 13:57 PFSH Acute PFSH: Family History Sister Hyperlipidemia Stroke Brother Stroke Colon cancer x2 onset in their 60's Denies family history of Ovarian cancer Diabetes Clotting disorder Heart disease Breast cancer Anesthesia complication Bleeding disorder Hypertension Uterine cancer Thyroid condition Social History Smoking and tobacco status: never smoked Vitals/I&O/Wt Last Vital Signs Temp 97.6 F 01/17/23 04:34 Pulse 78 01/17/23 04:34 Resp 16 01/17/23 04:34 BP 162/81 01/17/23 04:34 Pulse Ox 94 01/17/23 04:34 01/16/23 01/16/23 01/17/23 14:59 22:59 06:59 Intake Total 1000 / 1000 Balance 1000 / 1000 Weight last 48 hrs Weight 200 lb Physical Exam Narrative: Patient is alert orient x3 has a good general appearance normal mood and affect. With family present in room 276 bed 2. Patient is in no obvious distress. Demonstrates dorsiflexion and plantarflexion with difficulty worse on the left compared to the right. Moderate palpatory and percussion pain throughout the paraspinous musculature of the thoracolumbar spine. Normal sensation to light touch through all dermatomal layers. Normal sensation light touch down both lower extremities with 4/5 motor strength throughout all motor groups diffusely down the left lower extremity compared to the right. No palpable pain over the SI joints bilaterally. Negative Tavon and Fabere sign. Positive straight leg raise negative on the right. Well-healed incisions bilaterally and anteriorly on both knees. Skin is clear warm with normal sensation to light touch, calves are supple with no medial thigh tenderness, negative Homans' sign. No palpable lymphadenopathy bilaterally. Reflexes are absent and symmetric about the knees and Achilles. No hyperreflexia or clonus. Downgoing Babinski's bilaterally. Dorsalis pedis and posterior tibial pulses are 2+. No palpable edema bilaterally. HENMT: COMMON NORMALS: normocephalic HEAD & SCALP: normocephalic Resp: COMMON NORMALS: normal respiratory effort Cardio: COMMON NORMALS: regular rate and regular rhythm RATE: regular rate RHYTHM: regular rhythm GI: COMMON NORMALS: Soft to palpation and non-tender PALPATION: Yes Soft to palpation : COMMON NORMALS: Yes no CVA tenderness BLADDER/KIDNEY EXAM: Yes no CVA tenderness Back/Pelvis: COMMON NORMALS: no CVA tenderness Psych: COMMON NORMALS: mental status grossly normal and cooperative Urinary Catheter Management: Bustamante: Cath Placed During This Visit: yes Reason for Continuing Indwelling Catheter: Acute Urinary Retention or Obstruction Urinary Catheter Date of Insertion: 01/17/23 Urinary Catheter Time of Insertion: 05:15 Data 01/16/23 23:14 01/16/23 23:14 MRI: Radiologist's impression: MR/MR lumbar spine wo con* [id number] IMPRESSION: ? 1.? Mild lumbar curve. No acute compression. No high-grade central canal stenosis. 2.? Mild central canal stenosis L2-L3 and L4-L5 worse L4-L5 with impingement traversing L5 nerve roots bilaterally. 3.? Moderate RIGHT L4-L5 foraminal narrowing impinges the exiting RIGHT L4 nerve root. 4.? Small LEFT foraminal protrusion L3-L4 with moderate LEFT foraminal narrowing. 5.? Mild bilateral L2-L3 foraminal narrowing with small foraminal protrusions. 6.? Mild RIGHT L5-S1 foraminal narrowing due to RIGHT eccentric disc osteophyte complex. 7.? Moderate facet arthropathy L3-L5. 8.? Small disc protrusions in the lower thoracic spine at T10-T11 and T11-T12. 9.? Central disc herniation T4-T5 with indentation on the thoracic cord and mild to moderate central canal stenosis. This is seen on the investigator fraud imaging. This can be further evaluated with thoracic spine MRI. ? A&P Assessment and plan (1) Other spondylosis with radiculopathy, lumbar region: Reviewed the radiographs at length. Discussed this case with Dr. Murphy regarding this patient's condition. We will recommend an urgent MRI scan of her lumbar spine without contrast. Obtain radiographs of the lumbar spine as well. We will keep her n.p.o. given her recent catheterization with over 1100 out. There is no evidence of saddle anesthesia but certainly with her diffuse weakness down her left lower extremity. We will await the MRI scan and the radiographs. Discussed at length with the family a plan of course will be arranged once the scans are completed. More than 50% of the time spent with the patient today involved coordination of care, counseling and discussion of conservative versus surgical treatment options. Total amount of time spent with the patient was 45 minutes. (2) Spinal stenosis, lumbar region, with neurogenic claudication: (3) Lower extremity weakness: Coding Level of Care Code Acute Code for Chg Fwd Diagnoses Other spondylosis with radiculopathy, lumbar region M47.26 Spinal stenosis, lumbar region, with neurogenic claudication M48.062 Lower extremity weakness R29.898 Time Spent (min) 45
[2023-01-17] MEDS: LORazepam 2 mg/mL INJ 1 mL 1 MG IVP ×2 (10:00→10:03)
--- NOTE | 2023-01-17 10:15 | MR_ITS ---
WS: [id number] MRI THORACIC SPINE WITHOUT CONTRAST TECHNIQUE: Sagittal T1, T2 and STIR imaging. Axial T2 imaging. Noncontrast imaging obtained. CLINICAL INFORMATION: evalute for nerve compression COMPARISON: None. FINDINGS: Counting performed from the craniocervical junction. Mild thoracic curve. Mild thoracic kyphosis. Pro minent Central disc protrusion at T4-T5 with indentation on the thoracic cord. Mild flattening of the thoracic cord at this level with mild central canal stenosis. Slight anterolisthesis T4 on T5. No other significant disc protrusions. Moderate facet arthropathy in the lower thoracic spine. Tiny s hallow disc bulges T10-11 T11-12. Mild bilateral bony foraminal narrowing T10-11, T11-12. Normal visualized thoracic aorta. Adrenal glands are normal. IMPRESSION: 1. Prominent central disc protrusion at T4-T5 with indentation on the thoracic cord. Mild flattening of the thoracic cord at this level with mild central canal stenosis. 2. Tiny shallow disc bulges T10-11 T11-12. Mild bilateral bony foraminal narrowing T10-11 and T11-12 . 3. Moderate facet arthropathy lower thoracic spine.
--- NOTE | 2023-01-17 10:15 | MR_ITS ---
WS: [id number] MRI LUMBAR SPINE NONCONTRAST TECHNIQUE: Sagittal T1, T2 and STIR imaging. Axial T1 and T2 imaging. CLINICAL INFORMATION: concern for nerve compression/cauda equina COMPARISON: MRI 04/12/2022 FINDINGS: Mild lumbar curve. No acute compression. No high-grade central canal stenosis. Mild disc bulging L3-L 4 and L4-L5 with mild central canal stenosis. L1-L2: No significant disc bulging. Mild facet arthropathy. Spinal canal and foramen are patent. L2-L3: Mild disc bulging with slight effacement of the ventral thecal sac. Slight narrowing subarticu lar recess bilaterally. Mild bilateral foraminal narrowing. Mild facet arthropathy. L3-L4: Mild annular bulging. Narrowing of the subarticular recess bilaterally. Moderate facet arthrop athy. Mild LEFT and no significant RIGHT foraminal narrowing. Mild central canal stenosis. L4-L5: Slight anterolisthesis. Moderate central canal stenosis with impingement traversing RIGHT L5 n erve root in the subarticular recess. Moderate to advanced facet arthropathy. Severe RIGHT and mild t o moderate LEFT foraminal narrowing. Moderate facet arthropathy with ligamentum flavum hypertrophy. M ild central canal stenosis at this level. L5-S1: Disc osteophyte complex with endplate ridging. Mild RIGHT and no significant LEFT foraminal na rrowing. Moderate facet arthropathy. Visualized pelvic bony structures: Normal. Paravertebral soft tissues: Normal. IMPRESSION: Overall no significant changes since 04/12/2022 1. Mild lumbar curve. No acute compression. No high-grade central canal stenosis. 2. Mild central canal stenosis L2-L3, L3-L4 and L4-L5 with impingement of the RIGHT L4-5 subarticula r recess. 3. Severe RIGHT L4-5 foraminal narrowing impinges the exiting L4 nerve root. Recommend correlation R IGHT L4 nerve root symptoms. 4. Moderate facet arthropathy worse at L4-5 and L5-S1. Notified Gordy Diggs MD at 01/17/2023 12:48 PM.
--- NOTE | 2023-01-17 10:15 | MR_ITS ---
WS: [id number] MRI HEAD WITHOUT CONTRAST TECHNIQUE: Sagittal T1, T2 axial, T2 axial FLAIR, axial and coronal T1 images, axial susceptibility w eighted imaging, axial diffusion weighted images, and coronal T2 images were obtained. CLINICAL INFORMATION: evaluate for stroke COMPARISON: CT 01/17/2023 FINDINGS: Multiple patchy foci of restricted diffusion involving the RIGHT frontal lobe and RIGHT parasagittal frontal lobe extending to the vertex consistent with acute ischemia. This extends to involve the body of the corpus callosum and extends posteriorly to the frontoparietal junction. Consider embolic etio logy. No other foci of restricted diffusion. Moderate small vessel changes. Mild parenchymal volume loss. N ormal vascular flow voids at the skull base. No extra-axial fluid collections. Paranasal sinuses and mastoid air cells are well aerated. No hemosiderin on susceptibility-weighted images. Moderate symmet adolph atrophy temporal lobes hippocampal formations. IMPRESSION: 1. Multiple patchy foci of restricted diffusion involving the RIGHT frontal lobe and RIGHT parasag ittal frontal lobe extending to the vertex consistent with acute ischemia. 2. No evidence of mass or mass effect. Mild associated edema associated with the areas of ischemia. 3. Moderate small vessel changes with moderate parenchymal volume loss. 4. No hemosiderin on the susceptibly weighted images.
--- NOTE | 2023-01-17 16:04 | PM.PN ---
Subjective Subjective: Patient presented to ER after an episode of dizziness and unable to get up from the couch. She slumped off the couch and was too weak to get up. She remained dizzy and noticed the weakness was mostly on the left. 01/17/2023: MRI of the brain shows 3 separate areas of acute ischemia on the right hemisphere. Today patient complains of headache and wanting to eat. relates that for the past 3 to 4 months patient is becoming progressively more forgetful to the point where she is forgetting food is in the oven and burning it. He has been very concerned for her health. Vitals/I&O/Wt Last Vital Signs Temp 97.5 F L 01/17/23 15:20 Pulse 101 H 01/17/23 15:20 Resp 18 01/17/23 15:20 BP 148/86 01/17/23 15:20 Pulse Ox 92 01/17/23 15:20 O2 Del Method Room Air 01/17/23 15:20 01/17/23 01/17/23 01/17/23 06:59 14:59 22:59 Intake Total 1000 / 1000 Output Total 1550 / 1550 Balance 1000 / 1000 -1550 / -1550 Weight last 48 hrs Weight 90.718 kg Physical Exam Narrative: Elderly obese white female lying in bed during exam Neuro: Patient is alert and oriented x3 NIHSS score: 6. Visual pizano: 1, facial palsy: 1, motor left arm: 1, motor left le left lower extremity limb ataxia: 1. Heart: Regular rate and rhythm no loud murmur. Lungs clear to auscultation without wheezes rales or rhonchi Abdomen obese soft nontender nondistended positive bowel sounds Extremities no clubbing cyanosis or edema Urinary Catheter Management: Bustamante: Cath Placed During This Visit: yes Reason for Continuing Indwelling Catheter: Acute Urinary Retention or Obstruction Urinary Catheter Date of Insertion: 01/17/23 Urinary Catheter Time of Insertion: 05:15 Data 01/16/23 23:14 01/16/23 23:14 MRI: Radiologist's impression: MRI Head: IMPRESSION: 1.? ? Multiple patchy foci of restricted diffusion involving the RIGHT frontal lobe and RIGHT parasagittal frontal lobe extending to the vertex consistent with acute ischemia. 2.? No evidence of mass or mass effect. Mild associated edema associated with the areas of ischemia. 3.? Moderate small vessel changes with moderate parenchymal volume loss. 4.? No hemosiderin on the susceptibly weighted images. MRA Head: IMPRESSION: Exam significantly limited by patient motion. 1.? No flow-limiting proximal intracranial stenosis considering limitations. 2.? Mild intracranial atheromatous disease. MRI thoracic IMPRESSION: 1.? Prominent central disc protrusion at T4-T5 with indentation on the thoracic cord. Mild flattening of the thoracic cord at this level with mild central canal stenosis. 2.? Tiny shallow disc bulges T10-11 T11-12. Mild bilateral bony foraminal narrowing T10-11 and T11-12. 3.? Moderate facet arthropathy lower thoracic spine. MRI lunbar: IMPRESSION: Overall no significant changes since 04/12/2022 1.? Mild lumbar curve. No acute compression. No high-grade central canal stenosis. 2.? Mild central canal stenosis L2-L3, L3-L4 and L4-L5 with impingement of the RIGHT L4-5 subarticular recess. 3.? Severe RIGHT L4-5 foraminal narrowing impinges the exiting L4 nerve root. Recommend correlation RIGHT L4 nerve root symptoms. 4.? Moderate facet arthropathy worse at L4-5 and L5-S1. EKG 1: My Interpretation: 1st degree AVB, HR 81, ME 211. QRS: nl .89 QTc: 451 EKG computer-generated impression: ? Interpretive Statements SINUS RHYTHM WITH FIRST DEGREE AV BLOCK A&P Assessment and plan (1) Embolic stroke: Work-up for etiology. This will include CT a of the neck. Echo. And telemetry. Of hypertension. Baby aspirin. Statin. No anticoagulation due to hemorrhagic conversion possibility. PT OT and speech eval. Serial neuro exams. (2) Cord compression: Can follow-up as outpatient (3) Spinal stenosis, lumbar region, with neurogenic claudication: Per MRI no change since last evaluation. Attestations Medical Necessity Statement*: Greater than 2 midnight admission is required for embolic ischemic strokes. Coding Level of Care Code Acute Code for [facility] Diagnoses Embolic stroke I63.9 Cord compression G95.20 Spinal stenosis, lumbar region, with neurogenic claudication M48.062
--- NOTE | 2023-01-17 16:24 | USCV_ITS ---
Asya Myers Age: 77 Gender: F : 1945 Exam Date: 01/17/2023 19:42 Ordering Phys: Gordy Diggs DO Technologist: MARCELLA [place] [facility] [place]: embolic stroke. No history of cardiac intervention per patient. BP: 120 / 78 HR: 102 Rhythm: Sinus Technical Quality: Adequate MEASUREMENTS (Male / Female) Normal Values 2D ECHO LV Diastolic Diameter PLAX 4.2 cm 4.2 - 5.9 / 3.9 - 5.3 cm LV Systolic Diameter PLAX 2.4 cm IVS Diastolic Thickness 1.2 cm 0.6 - 1.0 / 0.6 - 0.9 cm IVS Systolic Thickness 1.8 cm LVPW Diastolic Thickness 1.2 cm 0.6 - 1.0 / 0.6 - 0.9 cm LVPW Systolic Thickness 1.2 cm LVOT Diameter 2.0 cm LV Ejection Fraction 2D Teich 74.2 % LV Ejection Fraction MOD 2C 60.4 % LV Ejection Fraction 2C AL 64.0 % LA Diameter 3.0 cm LA Width 2.8 cm LA Height 4.7 cm RA Width 2.7 cm RA Height 4.5 cm Aorta at Sinotubular Diameter 2.6 cm IVC Diameter 1.3 cm M-MODE Aortic Annulus Diameter 2.7 cm LA Ao Ratio MM 1.1 MV E Point Septal Separation 0.3 cm DOPPLER AV Peak Velocity 119.0 cm/s LVOT Peak Velocity 86.0 cm/s AV Area Cont Eq vti 2.2 cm squared AV Area Cont Eq pk 2.3 cm squared MV Peak Velocity 100.0 cm/s MV Area PHT 3.9 cm squared Mitral E to A Ratio 0.7 MV E' Velocity 30.0 cm/s Mitral E to MV E' Ratio 11.6 Mitral E to LV E' Lateral Ratio 11.1 Mitral E to LV E' Septal Ratio 12.1 TV Peak E Velocity 36.0 cm/s PV Peak Velocity 87.0 cm/s RV Acceleration Time 0.1 s RV Ejection Time 0.3 s RV AcT/ET 0.3 FINDINGS Left Ventricle Normal left ventricular size and systolic function, EF 69 %. No regional wall motion abnormalities. Mild left ventricular hypertrophy. Grade I/IV diastolic dysfunction (abnormal relaxation filling pattern), normal to mildly elevated filling pressures. Right Ventricle The right ventricle is normal in size and function. Right Atrium The right atrium is normal in size. Left Atrium The left atrium is normal in size. Mitral Valve Thickened mitral valve. Moderate mitral annular calcification. Aortic Valve Thickened aortic valve. Tricuspid Valve No gross abnormalities noted Pulmonic Valve Pulmonic valve not well visualized. Pericardium Normal pericardium without effusion. Aorta Normal ascending aorta dimension. IVC Normal inferior vena cava. CONCLUSIONS Normal left ventricular size and systolic function, EF 69 %. No regional wall motion abnormalities. Mild left ventricular hypertrophy. Grade I/IV diastolic dysfunction (abnormal relaxation filling pattern), normal to mildly elevated filling pressures. Thickened mitral valve. Moderate mitral annular calcification. Thickened aortic valve. There is no pericardial effusion. No similar previous studies are available for comparison Dr Yvonne Wise MD FACC (Electronically Signed) Final Date: 18 January 2023 12:01 S
[2023-01-17] MEDS: acetaminophen 325 mg Tablet 650 MG PO ×2 (17:00→19:29)
[2023-01-17] MEDS: labetalol 5 mg/mL SDV 20mL 10 MG IVP (17:50)
[2023-01-17] MEDS: atorvastatin 40 mg Tablet 80 MG PO (21:09)
[2023-01-18] VITALS (10 sets, daily range): BP systolic 128–158; BP diastolic 66–83; PULSE 56–72; RESP 16–18; TEMP 36.4–37.1; O2SAT 91–96
[2023-01-18 05:31] LABS: Basophils % 0.1 %; Hematocrit 46.1 % (36-47); Lymphocytes # 1.5 10^3/uL (0.8-4.8); Lymphocytes % 17.6 %; Mean Corpuscular HGB Conc 30.6 g/dL (30-55); Mean Corpuscular Hemoglobin 27.1 pg (27-33); Mean Corpuscular Volume 88.5 fl (85-98); Mean Platelet Volume 9.7 fL (7.4-10.4); Monocytes # 0.4 10^3/uL (0.2-0.9); Monocytes % 4.5 %; Neutrophils # 6.66 10^3/uL (1.8-7.7); Neutrophils % 77.2 %; Nucleated Red Blood Cells % 0 %; Platelet Count 262 10^3/cmm (157-399); Red Blood Count 5.21 10^6/uL (3.85-5.65); Red Cell Distribution Width 13.7 % (12.1-15.1); White Blood Count 8.63 10^3/uL (3.29-11.43)
[2023-01-18 05:44] LABS: INR 0.99 (0.8-1.2)
[2023-01-18 05:52] LABS: Alanine Aminotransferase 9 U/L (0-33); Alkaline Phosphatase 86 U/L (35-105); Aspartate Amino Transferase 18 U/L (0-32); Blood Urea Nitrogen 22 mg/dL (8-23); Calcium 9.1 mg/dL (8.5-10.5); Carbon Dioxide 27 mmol/L (22-29); Chloride 105 mmol/L (98-107); Chol HDL Ratio 3.66 mg/dL (0.0-4.40); Cholesterol 194 mg/dL (0-200); Estmated Average Glucose 123; Globulin 3.3 g/dL (1.3-4.6); Glucose 122 mg/dL (65-115); HDL Cholesterol 53 mg/dL (60-100); Hemoglobin A1C 5.9 % (4.0-6.0); LDL Cholesterol Calculated 126 mg/dL (50-129); LDL HDL Ratio 2.38 RATIO (0.00-3.22); Osmolality Calculated 299 mOsm/kg (285-295); Sodium 142 mmol/L (136-145); Total Bilirubin 0.5 mg/dL (0.15-1.2); Total Protein 7.3 g/dL (6.6-8.7); Triglycerides 77 mg/dL (0-150)
--- NOTE | 2023-01-18 06:00 | USCV_ITS ---
Louis Asya Age: 77 Gender: F : 1945 Exam Date: 01/18/2023 03:19 Ordering Phys: Gordy Diggs DO Technologist: MARCELLA Exam Location: [facility] [place] Indication: embolic stroke. Non-smoker. No DM Risk Factors: None Previous Vascular Surgery: None Right Brachial BP: 146 / 77 Left Brachial BP: / Right Left Velocity (cm/s) Spectral Plaque Velocity (cm/s) Spectral Plaque Syst/Diast Broadening Syst/Diast Broadening 80.50/ 14.30 None None Prox CCA 79.50 / 14.50 None None 73.90/ 14.30 None None Mid CCA 90.70 / 19.10 None None 81.60/ 13.20 None None Distal CCA 86.80 / 19.10 None None 42.70/ 13.10 Min Homo Prox ICA 72.60 / 21.40 Min Homo 69.00/ 16.40 Min Homo Mid ICA 52.10 / 16.20 Min Homo 80.80/ 29.60 Min Homo Distal ICA 56.40 / 10.30 Min Homo 137.80 Min Homo ECA 100.00 Min Homo 0.99 ICA/CCA 0.80 Antegrade Vertebral Antegrade 33.50/ 7.90 cm/s 31.60/ 13.10 cm/s Tri Subclavian Tri 70.30 55.90 FINDINGS Comparison: none available. No significant elevation of systolic or diastolic velocities. Waveforms are normal. Mild carotid atherosclerosis. Antegrade vertebral arteries. CONCLUSIONS Bilateral ICA stenosis less than 50%. Mild carotid atherosclerosis. Dr. Mckenna Weinstein DO (Electronically Signed) Final Date: 19 January 2023 11:48 S
--- NOTE | 2023-01-18 07:40 | P.PN_ITS ---
Subjective Subjective: Patient up in the chair this morning with family present. Continues to report numbness and weakness in the left lower extremity. Vitals/I&O/Wt Last Vital Signs Temp 97.9 F 01/18/23 04:00 Pulse 56 L 01/18/23 06:00 Resp 18 01/18/23 04:00 BP 128/66 01/18/23 04:00 Pulse Ox 93 01/18/23 04:00 O2 Del Method Room Air 01/18/23 04:00 01/17/23 01/18/23 01/18/23 22:59 06:59 14:59 Intake Total 100 / 100 Output Total 550 / 2100 200 / 2300 Balance -450 / -2000 -200 / -2200 Weight last 48 hrs Weight 200 lb Physical Exam Narrative: Patient is alert confused diffused weakness down the left lower extremity. 3/5 strength in the left lower extremity. Unable to dorsiflex plantarflex the left foot. Diffuse numbness and tingling throughout the left lower extremity. Negative logroll. Skin is warm to the touch toes are warm good cap refill pulses are weak but palpable. Calves are supple no medial thigh tenderness. Well-healed incisions from previous knee replacement surgery. Full range of motion of the right lower extremity at the hip knee and ankle. Can dorsiflex and plantarflex without any problem. She has full range of motion of both upper extremities. 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 Raise her arms overhead without any problem. Radial pulses are palpable. Normal sensation light touch throughout both upper extremities. Full range of motion of the cervical spine. HENMT: COMMON NORMALS: normocephalic and atraumatic HEAD & SCALP: normocephalic and atraumatic Resp: COMMON NORMALS: normal respiratory effort Cardio: COMMON NORMALS: regular rate and regular rhythm RATE: regular rate RHYTHM: regular rhythm GI: COMMON NORMALS: Soft to palpation and non-tender PALPATION: Yes Soft to palpation : COMMON NORMALS: Yes no CVA tenderness BLADDER/KIDNEY EXAM: Yes no CVA tenderness Back/Pelvis: COMMON NORMALS: no CVA tenderness Psych: COMMON NORMALS: cooperative Urinary Catheter Management: Bustamante: Cath Placed During This Visit: yes Reason for Continuing Indwelling Catheter: Other Urinary Catheter Date of Insertion: 01/17/23 Urinary Catheter Time of Insertion: 05:15 Data 01/18/23 05:03 01/18/23 05:03 MRI: Radiologist's impression: MPRESSION: 1.? Prominent central disc protrusion at T4-T5 with indentation on the thoracic cord. Mild flattening of the thoracic cord at this level with mild central canal stenosis. 2.? Tiny shallow disc bulges T10-11 T11-12. Mild bilateral bony foraminal narrowing T10-11 and T11-12. 3.? Moderate facet arthropathy lower thoracic spine. IMPRESSION: Overall no significant changes since 04/12/2022 1.? Mild lumbar curve. No acute compression. No high-grade central canal stenosis. 2.? Mild central canal stenosis L2-L3, L3-L4 and L4-L5 with impingement of the RIGHT L4-5 subarticular recess. 3.? Severe RIGHT L4-5 foraminal narrowing impinges the exiting L4 nerve root. Recommend correlation RIGHT L4 nerve root symptoms. 4.? Moderate facet arthropathy worse at L4-5 and L5-S1. A&P Assessment and plan (1) Embolic stroke: Reviewed at length the MRI scans and the patient's symptoms in the left lower extremity are not coinciding with expectations of neurologic pins bit from her low back. Further discussions with the nurses and the patient's family indicate that this pain has been ongoing for longer than just recently with a fall. We will continue to have physical therapy work with mobilization. Work to establish an outpatient evaluation with the pain clinic but based on her stroke certainly may affect her ability to have injections. We will continue to follow obtain AP lateral radiographs of her lumbar spine based on the fall from the sofa we will also obtain radiographs of her left hip. More than 50% of the time spent with the patient today involved coordination of care, counseling and discussion of conservative versus surgical treatment options. Total amount of time spent with the patient was 35 minutes. (2) Lower extremity weakness: Attestations Medical Necessity Statement*: Defer to medical team Coding Level of Care Code Acute Code for [facility] Diagnoses Embolic stroke I63.9 Lower extremity weakness R29.898 Time Spent (min) 35
--- NOTE | 2023-01-18 07:48 | XRR_ITS ---
PROCEDURE INFORMATION: Exam: XR Left Hip Exam date and time: 01/18/2023 8:11 AM Age: 77 years old Clinical indication: Injury or trauma; Fall; Blunt trauma (contusions or hematomas); Left; Hip TECHNIQUE: Imaging protocol: Radiologic exam of the left hip. Views: 2 or 3 views hip with pelvis when performed. COMPARISON: CT kidney stone [id number] 04/22/2021 5:52 PM FINDINGS: Bones/joints: There is no evidence of acute fracture. There is moderate osteoarthritis of the left hip consisting of joint space narrowing and periarticular spurring/sclerosis. Soft tissues: Unremarkable. XR/XR hip LT 2-3V wo/w pel* [id number] IMPRESSION: 1. No evidence of acute fracture. 2. Moderate left hip osteoarthritis.
--- NOTE | 2023-01-18 10:03 | PC.CHAP ---
Pastoral Care Encounter/Spiritual Assessment Type of Contact [] Declined lithograph designer visit [] Patient/Family/Request visit [] Outpatient visit [] Follow-up visit [] Physician referral [] Code/Alert [x] Routine visit [] Staff referral [] Actively dying [] Patient sleeping [x] Family support [] [] Out of room [] Palliative care [] [] Receiving care in room [] Pre-surgical visit [] Trauma [] Long length of stay [] ICU visit [] Other: Relational/Emotional Strength [x] Patient feels connected with others/family/visitors/staff [] Distress [] Loneliness/isolation [] Abandonment Spirituality of Patient [x] Person of Rupal [] Attends Jew of their Rupal [x] Believes in Prayer [] Reads Bible or Mu-Ism materials [] There are Spiritual issues to be addressed Leaf Tier Interventions [x] Prayer [x] Active listening [x] Non-anxious presence [x] Spiritual/emotional support [] Crisis/trauma care [] Spiritual counseling [] Bereavement support [] Provided bereavement packet [] Provided Bible/devotional materials [] Provided toy/stuffed animal, coloring book to patient or family member [] Provided Communion [] Anointing/[place] [] Salvation [x] Completed spiritual assessment [] Other: Impact on Illness or Injury [] Angry [] Fearful [] Anxious [] Often cries [] Exhaustion [] Unable to work [] Unable to attend tenriism [] Unable to walk/stand [] Unable to read [] Unable to drive [] Unable to eat/drink [] Unable to sleep [] Unable to be with family [] Patient intubated [] Other: Summary Time spent with patient 10 min
[2023-01-18] MEDS: acetaminophen 325 mg Tablet 650 MG PO ×2 (14:30→22:25)
--- NOTE | 2023-01-18 15:46 | P.PN_ITS ---
Subjective Subjective: Patient presented to ER after an episode of dizziness and unable to get up from the couch. She slumped off the couch and was too weak to get up. She remained dizzy and noticed the weakness was mostly on the left. 01/17/2023: MRI of the brain shows 3 separate areas of acute ischemia on the right hemisphere. 01/18/2023: Echo is unremarkable. [facility] mental status exam . Visuospatial/executive section of the MoCA is 1/ 5. Patient has no new complaints no change in motor or sensation. Vitals/I&O/Wt Last Vital Signs Temp 97.7 F 01/18/23 12:00 Pulse 65 01/18/23 12:00 Resp 17 01/18/23 12:00 BP 146/67 01/18/23 12:00 Pulse Ox 94 01/18/23 12:00 O2 Del Method Room Air 01/18/23 04:00 01/18/23 01/18/23 01/18/23 06:59 14:59 22:59 Output Total 200 / 2300 Balance -200 / -2200 Weight last 48 hrs Weight 90.718 kg Physical Exam Narrative: Elderly obese white female lying in bed during exam Neuro: Patient is alert and oriented x3 NIHSS score: 7. Visual pizano: 1, facial palsy: 1, motor left arm: 1, motor left le left lower extremity limb ataxia: 1. Heart: Regular rate and rhythm no loud murmur. Lungs clear to auscultation without wheezes rales or rhonchi Abdomen obese soft nontender nondistended positive bowel sounds Extremities no clubbing cyanosis or edema Urinary Catheter Management: Bustamante: Cath Placed During This Visit: yes Reason for Continuing Indwelling Catheter: Other Urinary Catheter Date of Insertion: 01/17/23 Urinary Catheter Time of Insertion: 05:15 Data 01/18/23 05:03 01/18/23 05:03 Echo: Radiologist's impression: Normal EF. 1/4 diastolic dysfunction. Normal size atrial A&P Assessment and plan (1) Embolic stroke: Work-up for etiology. Echo no thrombus, no ASD, normal EF. Mild diastolic dysfunction. Ultrasound of carotid arteries pending results. Telemetry without significant arrhythmia Permissive hypertension. Baby aspirin. Statin. No anticoagulation for 1 week. PT OT and speech eval. moderate to severe cognitive deficits Serial neuro exams. (2) Cord compression: Can follow-up as outpatient with Ortho (3) Spinal stenosis, lumbar region, with neurogenic claudication: Per MRI no change since last evaluation. Follow-up with Ortho as an outpatient Plan Patient is a great candidate for inpatient rehabilitation. Referral has been made and [facility] has excepted. Plan to discharge in a.m. Attestations Medical Necessity Statement*: Patient requires continued hospitalization status post embolic strokes. She requires continued neurologic care and have the ability for emergent care in case of neurologic deterioration in the first 72 hours poststroke. Coding Level of Care Code Acute Code for [facility] Diagnoses Embolic stroke I63.9 Cord compression G95.20 Spinal stenosis, lumbar region, with neurogenic claudication M48.062
[2023-01-18] MEDS: atorvastatin 40 mg Tablet 80 MG PO (22:01)
[2023-01-19] VITALS (7 sets, daily range): BP systolic 130–143; BP diastolic 61–83; PULSE 59–81; RESP 17–20; TEMP 36.6–36.9; O2SAT 90–95
--- NOTE | 2023-01-19 13:08 | PM.DCS ---
Discharge Providers Date of Admission: 01/17/23 07:17 Date of Discharge: January 19, 2023 Attending Provider at Admission: Elisabeth Tena MD Attending Provider at Discharge: Gordy Diggs DO Primary Care Provider: Alexys Swanson DO Diagnoses at Discharge Discharge Diagnosis (1) Embolic stroke: Status: Acute Permanent problem details: right hemisphere (2) Cord compression: Status: Acute Permanent problem details: mild, T4-5 (3) Spinal stenosis, lumbar region, with neurogenic claudication: Status: Chronic Reason for Visit Reason for Visit: Weakness/ N/V Brief History: Patient reports presented to an ER with episode of dizziness unable to get up from the couch it was felt that she had generalized weakness. There was concern for urinary retention. The hospitalist on admission did observe left-sided weakness and decided to order MRI of the head for possibility of stroke and ordered thoracic and lumbar spine MRI to rule out cord compression. Was found to have an acute drop as the cause of her left-sided weakness. Hospital Course Hospital Course Patient presented to ER after an episode of dizziness and unable to get up from the couch.? She slumped off the couch and was too weak to get up.? She remained dizzy and noticed the weakness was mostly on the left. 01/17/2023: MRI of the brain shows 3 separate areas of acute ischemia on the right hemisphere. 01/18/2023: Echo is? unremarkable.? [facility] mental status exam .? Visuospatial/executive section of the MoCA is 1/ 5. 01/19/2023: Carotids were overall patent no area of thrombus concerning for an embolic focus. Thorough review of telemetry shows perhaps episodes of paroxysmal atrial fibrillation. Appears that patient suffered an embolic stroke most likely from paroxysmal atrial fibrillation. She should be placed on full dose anticoagulation in approximately 1 week from date of stroke which was 01/16/2023. She can be placed on DVT prophylaxis. For now continue aspirin 80 and statin. Allow permissive hypertension. Physical Exam Narrative: Elderly obese white female lying in bed during exam Neuro: Patient is alert and oriented x3 NIHSS score: 7.? Visual pizano: 1, facial palsy: 1, motor left arm: 1, motor left le left lower extremity limb ataxia: 1. Heart: Regular rate and rhythm no loud murmur.? Lungs clear to auscultation without wheezes rales or rhonchi Abdomen obese soft nontender nondistended positive bowel sounds Extremities no clubbing cyanosis or edema Urinary Catheter Management: Bustamante: Cath Placed During This Visit: yes Reason for Continuing Indwelling Catheter: Other Urinary Catheter Date of Insertion: 01/17/23 Urinary Catheter Time of Insertion: 05:15 Discharge Data Studies Completed and Pending Completed Studies During Hospitalization Category Date Time Status CT head wo con* [id number] Stat Cat Scan 01/17/23 00:15 Completed XR chest 1V portable [id number] Stat Exams 01/17/23 00:15 Completed XR hip LT 2-3V wo/w pel* [id number] Routine Exams 01/18/23 07:48 Completed MR angio head wo con [id number] Routine MRI 01/17/23 Completed MR head wo con* [id number] Routine MRI 01/17/23 10:15 Completed MR lumbar spine wo con* [id number] Urgent MRI 01/17/23 10:15 Completed MR thoracic spin wo con* [id number] Urgent MRI 01/17/23 10:15 Completed CV carotid duplex BI* [id number] Routine Ultrasound 01/18/23 06:00 Completed CV. echo complete* [id number] Routine Ultrasound 01/17/23 16:24 Completed Radiology Impressions Chest X-Ray 01/17/23 00:15 IMPRESSION: No acute findings. Head CT 01/17/23 00:15 IMPRESSION: 1. No acute intracranial abnormality. 2. Small-vessel ischemic disease. Hip/Pelvis X-Ray 01/18/23 07:48 IMPRESSION: 1. No evidence of acute fracture. 2. Moderate left hip osteoarthritis. Laboratory Results WBC 8.63 10^3/uL (3.29-11.43) 01/18/23 05:03 Corrected WBC Cancelled 12/27/22 23:14 RBC 5.21 10^6/uL (3.85-5.65) 01/18/23 05:03 Hgb 14.10 g/dL (11.27-16.99) 01/18/23 05:03 Hct 46.1 % (36-47) 01/18/23 05:03 MCV 88.5 fl (85-98) 01/18/23 05:03 MCH 27.1 pg (27-33) 01/18/23 05:03 MCHC 30.6 g/dL (30-55) 01/18/23 05:03 RDW 13.7 % (12.1-15.1) 01/18/23 05:03 Plt Count 262 10^3/cmm (157-399) 01/18/23 05:03 MPV 9.7 fL (7.4-10.4) 01/18/23 05:03 Gran % Cancelled 12/27/22 23:14 Neut % (Auto) 77.2 % 01/18/23 05:03 Lymph % (Auto) 17.6 % 01/18/23 05:03 Metcalfe % (Auto) 4.5 % 01/18/23 05:03 Eos % (Auto) 0.0 % 01/18/23 05:03 Baso % (Auto) 0.1 % 01/18/23 05:03 Neut # (Auto) 6.66 10^3/uL (1.8-7.7) 01/18/23 05:03 Lymph # (Auto) 1.5 10^3/uL (0.8-4.8) 01/18/23 05:03 [place]calfe # (Auto) 0.4 10^3/uL (0.2-0.9) 01/18/23 05:03 Eos # (Auto) 0.0 10^3/uL (0.0-0.8) 01/18/23 05:03 Baso # (Auto) 0.0 10^3/uL (0.0-0.1) 01/18/23 05:03 Absolute Gran (auto) Cancelled 12/27/22 23:14 Nucleated RBC % (auto) 0 % 01/18/23 05:03 Nucleated RBCs # 0.0 /100WBC 01/18/23 05:03 PT 13.40 SECONDS (12.1-14.9) 01/18/23 05:03 INR 0.99 (0.8-1.2) 01/18/23 05:03 Sodium 142 mmol/L (136-145) 01/18/23 05:03 Potassium 4.0 mmol/L (3.5-5.1) 01/18/23 05:03 Chloride 105 mmol/L (98-107) 01/18/23 05:03 Carbon Dioxide 27 mmol/L (22-29) 01/18/23 05:03 Anion Gap 14.0 (5-19) 01/18/23 05:03 BUN 22 mg/dL (8-23) 01/18/23 05:03 Creatinine 0.7 mg/dL (0.5-0.9) 01/18/23 05:03 GFR Calculation Not Reportable 01/18/23 05:03 Glucose 122 mg/dL (65-115) H 01/18/23 05:03 Estimat Average Glucose 123 01/18/23 05:03 Hemoglobin A1c 5.9 % (4.0-6.0) 01/18/23 05:03 Calculated Osmolality 299 mOsm/kg (285-295) H 01/18/23 05:03 Lactic Acid 2.0 mmol/L (0.5-2.2) 01/16/23 23:14 Calcium 9.1 mg/dL (8.5-10.5) 01/18/23 05:03 Total Bilirubin 0.5 mg/dL (0.15-1.2) 01/18/23 05:03 AST 18 U/L (0-32) 01/18/23 05:03 ALT 9 U/L (0-33) 01/18/23 05:03 Alkaline Phosphatase 86 U/L (35-105) 01/18/23 05:03 Creatine Kinase 55 U/L (26-192) 01/16/23 23:14 C-Reactive Protein 3.1 mg/L (0.0-4.9) 01/16/23 23:14 NT-Pro-B Natriuret Pep 107 pg/mL (0-450) 01/16/23 23:14 Total Protein 7.3 g/dL (6.6-8.7) 01/18/23 05:03 Albumin 4.0 g/dL (3.5-5.2) 01/18/23 05:03 Globulin 3.3 g/dL (1.3-4.6) 01/18/23 05:03 Triglycerides 77 mg/dL (0-150) 01/18/23 05:03 Cholesterol 194 mg/dL (0-200) 01/18/23 05:03 LDL Cholesterol, Calc 126 mg/dL (50-129) 01/18/23 05:03 HDL Cholesterol 53 mg/dL (60-100) L 01/18/23 05:03 LDL/HDL Ratio 2.38 RATIO (0.00-3.22) 01/18/23 05:03 Cholesterol/HDL Ratio 3.66 mg/dL (0.0-4.40) 01/18/23 05:03 TSH 3.80 uIU/mL (0.27-4.20) 01/16/23 23:14 Urine Color Yellow (Yellow) 01/17/23 00:54 Urine Appearance Clear (CLEAR) 01/17/23 00:54 Urine pH 5 (5-7) 01/17/23 00:54 Ur Specific [place] 1.020 (1.005-1.030) 01/17/23 00:54 Urine Protein Neg (Negative) 01/17/23 00:54 Urine Glucose (UA) Norm (Normal) 01/17/23 00:54 Urine Ketones 1+ (Negative) H 01/17/23 00:54 Urine Blood Neg (Negative) 01/17/23 00:54 Urine Nitrate Negative (Negative) 01/17/23 00:54 Urine Bilirubin Neg (Negative) 01/17/23 00:54 Urine Urobilinogen Neg mg/dL (Negative) 01/17/23 00:54 Ur Leukocyte Esterase Negative (Negative) 01/17/23 00:54 Ethyl Alcohol < 10 mg/dL (0-10) 01/16/23 23:14 Imaging MRI: Radiologist's impression: MRI head : Multiple patchy foci of restricted diffusion involving the RIGHT frontal lobe and RIGHT parasagittal frontal lobe extending to the vertex consistent with acute ischemia. This extends to involve the body of the corpus callosum and extends posteriorly to the frontoparietal junction. Consider embolic etiology. No other foci of restricted diffusion. Moderate small vessel changes. Mild parenchymal volume loss. Normal vascular flow voids at the skull base. No extra-axial fluid collections. Paranasal sinuses and mastoid air cells are well aerated. No hemosiderin on susceptibility-weighted images. Moderate symmetric atrophy temporal lobes hippocampal formations. IMPRESSION: 1.? ? Multiple patchy foci of restricted diffusion involving the RIGHT frontal lobe and RIGHT parasagittal frontal lobe extending to the vertex consistent with acute ischemia. 2.? No evidence of mass or mass effect. Mild associated edema associated with the areas of ischemia. 3.? Moderate small vessel changes with moderate parenchymal volume loss. 4.? No hemosiderin on the susceptibly weighted images. MRI thoracic spine Counting performed from the craniocervical junction. Mild thoracic curve. Mild thoracic kyphosis. Prominent Central disc protrusion at T4-T5 with indentation on the thoracic cord. Mild flattening of the thoracic cord at this level with mild central canal stenosis. Slight anterolisthesis T4 on T5. No other significant disc protrusions. Moderate facet arthropathy in the lower thoracic spine. Tiny shallow disc bulges T10-11 T11-12. Mild bilateral bony foraminal narrowing T10-11, T11-12. Normal visualized thoracic aorta. Adrenal glands are normal. IMPRESSION: 1.? Prominent central disc protrusion at T4-T5 with indentation on the thoracic cord. Mild flattening of the thoracic cord at this level with mild central canal stenosis. 2.? Tiny shallow disc bulges T10-11 T11-12. Mild bilateral bony foraminal narrowing T10-11 and T11-12. 3.? Moderate facet arthropathy lower thoracic spine. MRI lumbar spine : Mild lumbar curve. No acute compression. No high-grade central canal stenosis. Mild disc bulging L3-L4 and L4-L5 with mild central canal stenosis. L1-L2: No significant disc bulging. Mild facet arthropathy. Spinal canal and foramen are patent. L2-L3: Mild disc bulging with slight effacement of the ventral thecal sac. Slight narrowing subarticular recess bilaterally. Mild bilateral foraminal narrowing. Mild facet arthropathy. L3-L4: Mild annular bulging. Narrowing of the subarticular recess bilaterally. Moderate facet arthropathy. Mild LEFT and no significant RIGHT foraminal narrowing. Mild central canal stenosis. L4-L5: Slight anterolisthesis. Moderate central canal stenosis with impingement traversing RIGHT L5 nerve root in the subarticular recess. Moderate to advanced facet arthropathy. Severe RIGHT and mild to moderate LEFT foraminal narrowing. Moderate facet arthropathy with ligamentum flavum hypertrophy. Mild central canal stenosis at this level. L5-S1: Disc osteophyte complex with endplate ridging. Mild RIGHT and no significant LEFT foraminal narrowing. Moderate facet arthropathy. Visualized pelvic bony structures: Normal. Paravertebral soft tissues: Normal. IMPRESSION: Overall no significant changes since 04/12/2022 1.? Mild lumbar curve. No acute compression. No high-grade central canal stenosis. 2.? Mild central canal stenosis L2-L3, L3-L4 and L4-L5 with impingement of the RIGHT L4-5 subarticular recess. 3.? Severe RIGHT L4-5 foraminal narrowing impinges the exiting L4 nerve root. Recommend correlation RIGHT L4 nerve root symptoms. 4.? Moderate facet arthropathy worse at L4-5 and L5-S1. Echo: Radiologist's impression: CONCLUSIONS ?Normal left ventricular size and systolic function, EF 69 %. No ?regional wall motion abnormalities. Mild left ventricular ?hypertrophy. Grade I/IV diastolic dysfunction (abnormal ?relaxation filling pattern), normal to mildly elevated filling ?pressures. ?Thickened mitral valve. Moderate mitral annular calcification. ?Thickened aortic valve. ?There is no pericardial effusion. ?No similar previous studies are available for comparison US: Radiologist's impression: Bilateral carotid arteries CONCLUSIONS ?Bilateral ICA stenosis less than 50%. ?Mild carotid atherosclerosis. Vitals Last Vital Signs Temp 98.4 F 01/19/23 11:39 Pulse 81 01/19/23 11:39 Resp 18 01/19/23 11:39 BP 133/78 01/19/23 11:39 Pulse Ox 94 01/19/23 11:39 O2 Del Method Room Air 01/19/23 11:39 Discharge Plan Discharge Patient Disposition: Xfer Inpatient Rehab Fac Condition: Stable Prescriptions: New atorvastatin 40 mg Tablet 80 mg PO BEDTIME Qty: 30 0RF Continued cholestyramine-aspartame [Cholestyramine Light] 4 gram powder in packet 1 ea PO BID PRN (Reason: GUT) Changed aspirin 81 mg Capsule 81 mg PO DAILY Qty: 30 0RF Discontinued acetaminophen [Tylenol Ex Str Rapid Release] 500 mg Tablet 500 mg PO Q4H PRN (Reason: Pain) diclofenac sodium 75 mg tablet,delayed release (DR/EC) 75 mg PO Q12H PRN (Reason: pain) Qty: 20 0RF meloxicam 15 mg tablet 15 mg PO DAILY PRN (Reason: pain) Qty: 10 0RF Discharge Orders: Discharge Order (Routine); Ordered 01/19/23 Ordered By: Gordy Diggs Referrals: Alexys Swanson DO [Primary Care Provider] - 01/26/23 1:30 pm Discharge Diet: Low Cholesterol Discharge Activity: Increase activity as tolerated Discharge Attestations Time Spent in Discharge Care*: greater than 30 min Quality Metrics Clinical Quality Measures [ Cerebrovascular Accident { Contraindication to Antithrombotic: None; antithrombotic prescribed; Contraindication to Anticoagulation: Medical contraindication; Contraindication to Statin: None; Statin prescribed; Contraindication to antithrombotic day 2: None; Antithrombotic given day 2; Contraindication to tPA: Did not meet criteria; Symptom Onset Unknown: Yes; Reason stroke education not provided: Stroke education provided to patient; Pt Provided Written Stroke Discharge Instructions: Patient given written information; Rehab services assessed: Activities of daily living assessment, Rehabilitation assessment, Physical therapy, Occupational therapy, Speech therapy; Reason rehab assessment not done: Rehab assessment done}] Coding Level of Care Code Acute Code for [facility] Diagnoses Embolic stroke I63.9 Cord compression G95.20 Spinal stenosis, lumbar region, with neurogenic claudication M48.062
--- NOTE | 2023-01-19 14:40 | PC.NURSE ---
This nurse called report to [facility] and gave report to VIOLETA Conklin. All questions were addressed/answered.
== END 2023-01-19 16:00 | DRG 65 ==
LOC: ER 01-17 03:55 → MEDSURG 01-17 05:09
PROVIDERS: Admitting Provider Student in an Organized Health Care Education/Training Program; Emergency Provider Emergency Medicine; PCP Electrodiagnostic Medicine; Visit Provider Internal Medicine
DX: I63.40 Cerebral infarction due to embolism of unspecified cerebral artery (principal); G81.94 Hemiplegia, unspecified affecting left nondominant side; Z68.41 Body mass index [BMI] 40.0-44.9, adult; R29.707 NIHSS score 7; M48.062 Spinal stenosis, lumbar region with neurogenic claudication; R33.9 Retention of urine, unspecified; I48.0 Paroxysmal atrial fibrillation; E66.9 Obesity, unspecified; Z96.653 Presence of artificial knee joint, bilateral; M47.26 Other spondylosis with radiculopathy, lumbar region
CPT/HCPCS: 36415; 51702; 70450; 70544; 70551; 71045; 72146; 72148; 73502; 80053; 80061; 80307; 81003; 82550; 83036; 83605; 83880; 84443; 85025; 85610; 86140; 92523; 92610; 93005; 93306; 93880; 97162; 97167; 97530; 97535; 99285; J1100; J2060; J3490; J7030